=== PATIENT | male | born 1960 | race Caucasian/White ===

== ENCOUNTER 2019-10-20 08:37 | Inpatient (IN) | payer OTHER ==
--- NOTE | 2019-10-20 09:07 | BHS.RME ---
Substance Use & Tx History - Substance Use History Alcohol Substance amount: /5 th whiskey and 4 beers Frequency of use: Daily Substance route: Oral Date of Last Use: 10/20/19 Benzodiazepines Substance amount: klonopin 1mg Frequency of use: Daily Substance route: Oral Date of Last Use: 10/13/19 Physical/Psych/Mental Status - Behavior General Behavior: Increased activity (restlessness, agitation) Eye Contact: Normal - Cooperativeness Cooperativeness: Cooperative - Thinking Thought Processes: Tight, Logical, Goal Directed Thought content: Future oriented - Physical Health Problems Is patient presently having any pain?: No Does patient presently have any injuries (include location): No Does patient currently have a fever: No Is patient : No CIWA Nausea/Vomitin-Int. Nausea w/Dry Heave Muscle Tremors: 3 Anxiety: 4-Mod. Anxious/Guarded Agitation: 4-Moderately Restless Paroxysmal Sweats: 4-Forehead w/Sweat Beads Orientation: 0-Oriented Tacttile Disturbances: 1-Very Mild Itch/Numbness Auditory Disturbances: 1-Very Mild Visual Disturbances: 1-Very Mild Sensitivity Headache: 1-Very Mild CIWA-Ar Total Score: 23
--- NOTE | 2019-10-20 09:22 | BHS.RME ---
Substance Use & Tx History - Substance Use History Alcohol Substance amount: /5th whiskey + 4 beers Frequency of use: Daily Substance route: Oral Date of Last Use: 10/20/19 (8am) Benzodiazepines Substance amount: klonopin prescribed Frequency of use: Daily Substance route: Oral Date of Last Use: 10/13/19 Nicotine Substance amount: 1 pack Frequency of use: Daily Substance route: Smoking Date of Last Use: 10/20/19 Physical/Psych/Mental Status - Behavior General Behavior: Increased activity (restlessness, agitation) Eye Contact: Normal - Cooperativeness Cooperativeness: Cooperative - Thinking Thought Processes: Tight, Logical, Goal Directed - Physical Health Problems Is patient presently having any pain?: No Does patient presently have any injuries (include location): No Does patient currently have a fever: No Is patient : No CIWA Nausea/Vomitin-Int. Nausea w/Dry Heave Muscle Tremors: 3 Anxiety: 3 Agitation: 4-Moderately Restless Paroxysmal Sweats: 4-Forehead w/Sweat Beads Orientation: 0-Oriented Tacttile Disturbances: 1-Very Mild Itch/Numbness Auditory Disturbances: 1-Very Mild Visual Disturbances: 1-Very Mild Sensitivity Headache: 1-Very Mild CIWA-Ar Total Score: 22
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
[2019-10-20] MEDS ORDERED: BISMUTH SUBSALICYLATE 524 MG/30 ML UD PO PRN (09:36)
[2019-10-20] MEDS ORDERED: ONDANSETRON *ODT* 4 MG TABLET SL PRN ×2 (09:36→09:41)
[2019-10-20] MEDS ORDERED: chlordiazePOXIDE HCL 25 MG CAPSULE PO PRN (09:36)
[2019-10-20] MEDS ORDERED: MAGNESIUM CITRATE 300 ML BOTTLE PO PRN (09:36)
[2019-10-20] MEDS ORDERED: MAG HYDROX/AL HYDROX/SIMETH 30 ML UNIT-DOSE CUP PO PRN (09:36)
[2019-10-20] MEDS ORDERED: MENTHOL/PHENOL 1 EACH UD MM PRN (09:36)
[2019-10-20] MEDS ORDERED: ACETAMINOPHEN 325 MG TABLET (FP) PO PRN ×2 (09:36)
[2019-10-20] MEDS ORDERED: NICOTINE POLACRILEX 2 MG GUM BUC PRN (09:36)
[2019-10-20] MEDS ORDERED: MAGNESIUM HYDROX 2400MG/30ML ORAL SUSPENSION 30 ML CUP PO PRN (09:36)
[2019-10-20] MEDS ORDERED: IBUPROFEN 400 MG TABLET (FP) PO PRN (09:36)
[2019-10-20 09:52] VITALS: BMI 32.9
[2019-10-20] MEDS ORDERED: LISINOPRIL 10 MG TABLET (FP) ONE (09:56)
[2019-10-20] MEDS ORDERED: LISINOPRIL 10 MG TABLET (FP) PO ONE (10:00)
--- NOTE | 2019-10-20 10:07 | CONSULT ---
[facility] Psychiatric Consult - Data Date of interview: 10/20/19 Admission source: [facility] Identifying data: Mr Marcelino is a 58 years old single male, father a son in his early 30's , unemployed receiving SSI, sharing an apartment in a program seeking detox treatment for alcohol and benzodiazepine Substance Abuse History: Reports history of alcohol and klonopin use. Refer to addiction counselor's summary for further information Medical History: Significant for anemia, bronchial asthma, hypertension and drug related seizures and fracture rib 2 month ago. Patient is on mehadone 150 mg/day from. Smokes cigarettes 1-2 ppd Psychiatric History: Patient is known for two previous admisions to this facility. Reports that he was diagnosed with Schizophrenia and started on p sychotropic medications in 2009 while serving time in detention. Reports multiple previous psychiatric hospitalizations but unable to provide details. Reports he is not currently receiving oupatient psychiatric treatment. According to record, he received treatment with Zyprexa in the past. Claims that he last saw a psychiatrist 3 months ago at a clinic in [place] and he was prescribed medications. He said he does not know name of medication and tells development writer to look it up. Denies previous suicidal attempt. At present, denies experiencing psychotic symptoms, S/H ideations. However, he is very irritable, reports feeling anxious and sleeping poorly. Patient is unwilling to resume psychotropic medication Physical/Sexual Abuse/Trauma History: Denies Mental Status Exam - Mental Status Exam Alert and Oriented to: Time, Place, Person Cognitive Function: Fair Patient Appearance: Disheveled Mood: Anxious, Irritable Affect: Appropriate Patient Behavior: Cooperative (superficially) Speech Pattern: Clear Voice Loudness: Normal, Monoloudness Thought Process: Goal Oriented Thought Disorder: Not Present Hallucinations: Denies Suicidal Ideation: Denies Homicidal Ideation: Denies Insight/Judgement: Poor Sleep: Poorly Appetite: Poor Muscle strength/Tone: Normal Gait/Station: Normal Psychiatric Findings - Problem List ([place] 1, 2,3) (1) Paranoid schizophrenia Current Visit: Yes Status: Chronic (2) Substance induced mood disorder Current Visit: Yes Status: Acute (3) Substance-induced sleep disorder Current Visit: Yes Status: Acute (4) Alcohol dependence with withdrawal, uncomplicated Current Visit: Yes Status: Acute (5) Sedative, hypnotic or anxiolytic dependence, uncomplicated Current Visit: Yes Status: Acute (6) Opioid dependence on agonist therapy Current Visit: Yes Status: Chronic (7) Nicotine dependence Current Visit: Yes Status: Acute Qualifiers: Nicotine product type: cigarettes Substance use status: uncomplicated Qualified Code(s): F17.210 - Nicotine dependence, cigarettes, uncomplicated (8) Asthma Current Visit: No Status: Chronic (9) Seizure Current Visit: No Status: Chronic (10) HTN (hypertension) Current Visit: Yes Status: Chronic (11) Anemia Current Visit: Yes Status: Chronic (12) Diastasis recti Current Visit: Yes Status: Chronic - Initial Treatment Plan Initial Treatment Plan: Continue inpatient detoxification
[2019-10-20] MEDS ORDERED: METHADONE HCL 10 MG TABLET PO SCH (10:15)
[2019-10-20] MEDS ORDERED: METHADONE 120 MG, METHADONE 30 MG PO ONE (10:45)
[2019-10-20] MEDS ORDERED: METHADONE HCL 10 MG TABLET ONE (11:01)
[2019-10-20] MEDS ORDERED: METHADONE HCL 40 MG DISPERSABLE TABLET ONE (11:02)
[2019-10-20] MEDS: FERROUS SO4 325 MG TABLET (FP) PO SCH (11:12)
[2019-10-20] MEDS: hydrOXYzine PAMOATE 25 MG CAPSULE (FP) PO SCH ×4 (11:12→22:21)
[2019-10-20] MEDS: METHOCARBAMOL 500 MG TABLET PO PRN (11:12)
[2019-10-20] MEDS: chlordiazePOXIDE HCL 25 MG CAPSULE PO SCH ×3 (11:12→22:20)
[2019-10-20] MEDS: PRENATAL VITAMINS W/ FOLIC ACID TABLET (FP) PO SCH (11:12)
--- NOTE | 2019-10-20 12:48 | PN ---
[facility] Progress Note Note: Called by PAULETTE Grier 168/102 At 11:30, rec: Danny Pt refused Danny, repeat BP 167/105 at ~ 12:45 p, will write for one time Clonidine dose
[2019-10-20] MEDS ORDERED: cloNIDine HCL 0.1 MG TABLET PO ONE (13:00)
[2019-10-20] MEDS: NICOTINE 7 MG/24 HOURS TOPICAL PATCH TD SCH (13:06)
[2019-10-20 16:04] LABS: ALBUMIN 3.8 g/dl (3.4-5.0); BILIRUBIN,TOTAL 0.7 mg/dL (0.2-1); BLOOD UREA NITROGEN 8.7 mg/dL (7-18); CALCIUM 8.3 mg/dL (8.5-10.1); CREATININE 0.7 mg/dL (0.55-1.3); POTASSIUM 3.3 mmol/L (3.5-5.1); TOT PROT 7.6 g/dl (6.4-8.2)
[2019-10-20 16:13] LABS: HEMATOCRIT 38.8 % (35.4-49); HEMOGLOBIN 12.7 GM/dL (11.7-16.9); MCH 28.7 pg (25.7-33.7); MCHC 32.6 g/dl (32.0-35.9); MEAN CELL VOLUME 87.8 fl (80-96); MEAN PLT VOLUME 7.9 fl (7.5-11.1); PLATELET COUNT 230 K/MM3 (134-434); RBC 4.42 M/mm3 (4.00-5.60); RDW 20.8 % (11.9-15.9); WHITE BLOOD COUNT 7.5 K/mm3 (4.0-10.0)
[2019-10-20] MEDS: THIAMINE HCL 100 MG TABLET (FP) PO SCH (22:21)
[2019-10-20] MEDS: MELATONIN 5 MG TABLETS PO SCH (23:25)
[2019-10-21] MEDS ORDERED: METHADONE HCL 10 MG TABLET ONE (04:02)
[2019-10-21] MEDS ORDERED: METHADONE HCL 40 MG DISPERSABLE TABLET ONE (04:03)
[2019-10-21] MEDS: chlordiazePOXIDE HCL 25 MG CAPSULE PO SCH ×4 (06:09→22:00)
[2019-10-21] MEDS: METHADONE 120 MG, METHADONE 30 MG PO SCH (06:10)
[2019-10-21] MEDS: FERROUS SO4 325 MG TABLET (FP) PO SCH (07:06)
[2019-10-21] MEDS: hydrOXYzine PAMOATE 25 MG CAPSULE (FP) PO SCH ×5 (07:09→22:01)
[2019-10-21] MEDS ORDERED: ALBUTEROL SO4 HFA INHALER IH PRN (07:36)
[2019-10-21] MEDS: NICOTINE 7 MG/24 HOURS TOPICAL PATCH TD SCH (10:34)
[2019-10-21] MEDS: POTASSIUM CHLORIDE TABS 20 MEQ TABLET.ER (FP) PO SCH ×2 (10:34→22:00)
[2019-10-21] MEDS: PRENATAL VITAMINS W/ FOLIC ACID TABLET (FP) PO SCH (10:34)
--- NOTE | 2019-10-21 11:10 | PN ---
S CIWA - CIWA Score Nausea/Vomitin Muscle Tremors: 2 Anxiety: 2 Agitation: 2 Paroxysmal Sweats: No Perspiration Orientation: 0-Oriented Tacttile Disturbances: 1-Very Mild Itch/Numbness Auditory Disturbances: 0-None Visual Disturbances: 0-None Headache: 1-Very Mild CIWA-Ar Total Score: 10 BHS Progress Note (SOAP) Subjective: alert,irritable,anxious,interrupted sleep,tremor,pain in the body Vital Signs Temperature 97.6 F 10/21/19 08:52 Pulse Rate 87 10/21/19 08:52 Respiratory Rate 19 10/21/19 08:52 Blood Pressure 158/99 10/21/19 08:52 O2 Sat by Pulse Oximetry (%) 95 10/21/19 08:52 Laboratory Last Values WBC 7.5 K/mm3 (4.0-10.0) 10/20/19 09:45 RBC 4.42 M/mm3 (4.00-5.60) 10/20/19 09:45 Hgb 12.7 GM/dL (11.7-16.9) 10/20/19 09:45 Hct 38.8 % (35.4-49) 10/20/19 09:45 MCV 87.8 fl (80-96) 10/20/19 09:45 MCH 28.7 pg (25.7-33.7) 10/20/19 09:45 MCHC 32.6 g/dl (32.0-35.9) 10/20/19 09:45 RDW 20.8 % (11.9-15.9) H 10/20/19 09:45 Plt Count 230 K/MM3 (134-434) 10/20/19 09:45 MPV 7.9 fl (7.5-11.1) 10/20/19 09:45 Sodium 135 mmol/L (136-145) L 10/20/19 09:45 Potassium 3.3 mmol/L (3.5-5.1) L 10/20/19 09:45 Chloride 97 mmol/L (98-107) L 10/20/19 09:45 Carbon Dioxide 32 mmol/L (21-32) 10/20/19 09:45 Anion Gap 5 MMOL/L (8-16) L 10/20/19 09:45 BUN 8.7 mg/dL (7-18) 10/20/19 09:45 Creatinine 0.7 mg/dL (0.55-1.3) 10/20/19 09:45 Est GFR (CKD-EPI)AfAm 121.41 10/20/19 09:45 Est GFR (CKD-EPI)NonAf 104.76 10/20/19 09:45 Random Glucose 85 mg/dL (74-106) 10/20/19 09:45 Calcium 8.3 mg/dL (8.5-10.1) L 10/20/19 09:45 Total Bilirubin 0.7 mg/dL (0.2-1) 10/20/19 09:45 AST 43 U/L (15-37) H 10/20/19 09:45 ALT 48 U/L (13-61) 10/20/19 09:45 Alkaline Phosphatase 105 U/L (45-117) 10/20/19 09:45 Total Protein 7.6 g/dl (6.4-8.2) 10/20/19 09:45 Albumin 3.8 g/dl (3.4-5.0) 10/20/19 09:45 Syphilis Serology Non-reactive (NONREACTIVE) 10/20/19 09:45 HIV Ag/Ab Combo Qual Negative (NEGATIVE) 10/20/19 11:25 Objective: 10/21/19 11:07 Vital Signs Temperature 97.6 F 10/21/19 08:52 Pulse Rate 87 10/21/19 08:52 Respiratory Rate 19 10/21/19 08:52 Blood Pressure 158/99 10/21/19 08:52 O2 Sat by Pulse Oximetry (%) 95 10/21/19 08:52 10/21/19 11:07 Laboratory Last Values WBC 7.5 K/mm3 (4.0-10.0) 10/20/19 09:45 RBC 4.42 M/mm3 (4.00-5.60) 10/20/19 09:45 Hgb 12.7 GM/dL (11.7-16.9) 10/20/19 09:45 Hct 38.8 % (35.4-49) 10/20/19 09:45 MCV 87.8 fl (80-96) 10/20/19 09:45 MCH 28.7 pg (25.7-33.7) 10/20/19 09:45 MCHC 32.6 g/dl (32.0-35.9) 10/20/19 09:45 RDW 20.8 % (11.9-15.9) H 10/20/19 09:45 Plt Count 230 K/MM3 (134-434) 10/20/19 09:45 MPV 7.9 fl (7.5-11.1) 10/20/19 09:45 Sodium 135 mmol/L (136-145) L 10/20/19 09:45 Potassium 3.3 mmol/L (3.5-5.1) L 10/20/19 09:45 Chloride 97 mmol/L (98-107) L 10/20/19 09:45 Carbon Dioxide 32 mmol/L (21-32) 10/20/19 09:45 Anion Gap 5 MMOL/L (8-16) L 10/20/19 09:45 BUN 8.7 mg/dL (7-18) 10/20/19 09:45 Creatinine 0.7 mg/dL (0.55-1.3) 10/20/19 09:45 Est GFR (CKD-EPI)AfAm 121.41 10/20/19 09:45 Est GFR (CKD-EPI)NonAf 104.76 10/20/19 09:45 Random Glucose 85 mg/dL (74-106) 10/20/19 09:45 Calcium 8.3 mg/dL (8.5-10.1) L 10/20/19 09:45 Total Bilirubin 0.7 mg/dL (0.2-1) 10/20/19 09:45 AST 43 U/L (15-37) H 10/20/19 09:45 ALT 48 U/L (13-61) 10/20/19 09:45 Alkaline Phosphatase 105 U/L (45-117) 10/20/19 09:45 Total Protein 7.6 g/dl (6.4-8.2) 10/20/19 09:45 Albumin 3.8 g/dl (3.4-5.0) 10/20/19 09:45 Syphilis Serology Non-reactive (NONREACTIVE) 10/20/19 09:45 HIV Ag/Ab Combo Qual Negative (NEGATIVE) 10/20/19 11:25 hypoklalemia k 3.3 k dur 20 meq po bid for 48 hrs Assessment: 10/21/19 11:09 withdrawal symptom Plan: continue detox librium regimen,kdur 20 meq po bid for 48 hrs,methadone maintena nce 150 mgs/day
[2019-10-21] MEDS: LISINOPRIL 10 MG TABLET (FP) PO SCH (11:27)
[2019-10-21] MEDS: DOCUSATE SODIUM 100 MG CAPSULE (FP) PO SCH ×2 (17:40→22:00)
[2019-10-21] MEDS: THIAMINE HCL 100 MG TABLET (FP) PO SCH (22:00)
[2019-10-21] MEDS: MELATONIN 5 MG TABLETS PO SCH (23:21)
[2019-10-22] MEDS ORDERED: METHADONE HCL 10 MG TABLET ONE (03:57)
[2019-10-22] MEDS ORDERED: METHADONE HCL 40 MG DISPERSABLE TABLET ONE (03:58)
[2019-10-22] MEDS: chlordiazePOXIDE HCL 25 MG CAPSULE PO SCH ×4 (05:21→22:04)
[2019-10-22] MEDS: METHADONE 120 MG, METHADONE 30 MG PO SCH (05:21)
[2019-10-22] MEDS: hydrOXYzine PAMOATE 25 MG CAPSULE (FP) PO SCH ×2 (05:21→10:08)
[2019-10-22] MEDS: DOCUSATE SODIUM 100 MG CAPSULE (FP) PO SCH ×3 (05:22→22:04)
[2019-10-22] MEDS: FERROUS SO4 325 MG TABLET (FP) PO SCH ×3 (07:12→17:52)
[2019-10-22] MEDS: NICOTINE 7 MG/24 HOURS TOPICAL PATCH TD SCH (10:08)
[2019-10-22] MEDS: PRENATAL VITAMINS W/ FOLIC ACID TABLET (FP) PO SCH (10:08)
[2019-10-22] MEDS: POTASSIUM CHLORIDE TABS 20 MEQ TABLET.ER (FP) PO SCH (10:08)
[2019-10-22] MEDS: LISINOPRIL 10 MG TABLET (FP) PO SCH (10:08)
[2019-10-22 11:20] LABS: POTASSIUM 3.7 mmol/L (3.5-5.1)
[2019-10-22 11:24] LABS: BLOOD UREA NITROGEN 18.3 mg/dL (7-18); CREATININE 0.7 mg/dL (0.55-1.3)
[2019-10-22] MEDS ORDERED: hydrOXYzine PAMOATE 25 MG CAPSULE (FP) PO PRN (11:41)
--- NOTE | 2019-10-22 11:43 | PN ---
S CIWA - CIWA Score Nausea/Vomitin-No Nausea/No Vomiting Muscle Tremors: 3 Anxiety: 2 Agitation: 2 Paroxysmal Sweats: 2 Orientation: 0-Oriented Tacttile Disturbances: 0-None Auditory Disturbances: 0-None Visual Disturbances: 0-None Headache: 0-None Present CIWA-Ar Total Score: 9 BHS Progress Note (SOAP) Subjective: sweats anxiety restless body aches Objective: 10/22/19 11:42 Vital Signs Temperature 97.6 F 10/22/19 09:31 Pulse Rate 98 H 10/22/19 09:31 Respiratory Rate 18 10/22/19 09:31 Blood Pressure 148/98 10/22/19 09:31 O2 Sat by Pulse Oximetry (%) 96 10/22/19 09:31 Laboratory Tests 10/20/19 10/20/19 10/20/19 09:45 09:45 09:45 WBC 7.5 RBC 4.42 Hgb 12.7 Hct 38.8 MCV 87.8 MCH 28.7 MCHC 32.6 RDW 20.8 H Plt Count 230 MPV 7.9 Sodium 135 L Potassium 3.3 L Chloride 97 L Carbon Dioxide 32 Anion Gap 5 L BUN 8.7 Creatinine 0.7 Est GFR (CKD-EPI)AfAm 121.41 Est GFR (CKD-EPI)NonAf 104.76 Random Glucose 85 Calcium 8.3 L Total Bilirubin 0.7 AST 43 H ALT 48 Alkaline Phosphatase 105 Total Protein 7.6 Albumin 3.8 Syphilis Serology Non-reactive COVID-19 (LASHAY) HIV Ag/Ab Combo Qual 10/20/19 10/20/19 10/22/19 11:25 12:50 08:45 WBC RBC Hgb Hct MCV MCH MCHC RDW Plt Count MPV Sodium 138 Potassium 3.7 Chloride 100 Carbon Dioxide 29 Anion Gap 9 BUN 18.3 H Creatinine 0.7 Est GFR (CKD-EPI)AfAm 121.41 Est GFR (CKD-EPI)NonAf 104.76 Random Glucose 98 Calcium 9.0 Total Bilirubin AST ALT Alkaline Phosphatase Total Protein Albumin Syphilis Serology COVID-19 (LASHAY) Not detected HIV Ag/Ab Combo Qual Negative labs noted improvement on potassium level BUN slight increase noted aaox3 ambulating no acute distress Assessment: 10/22/19 11:44 withdrawals Plan: continue detox increase fluids
[2019-10-22] MEDS: THIAMINE HCL 100 MG TABLET (FP) PO SCH (22:04)
[2019-10-22] MEDS: MELATONIN 5 MG TABLETS PO SCH (23:14)
[2019-10-23] MEDS ORDERED: chlordiazePOXIDE HCL 10 MG CAPSULE PO PRN
[2019-10-23] MEDS ORDERED: METHADONE HCL 10 MG TABLET ONE (04:10)
[2019-10-23] MEDS ORDERED: METHADONE HCL 40 MG DISPERSABLE TABLET ONE (04:11)
[2019-10-23] MEDS: METHADONE 120 MG, METHADONE 30 MG PO SCH (05:14)
[2019-10-23] MEDS: DOCUSATE SODIUM 100 MG CAPSULE (FP) PO SCH ×3 (05:14→22:30)
[2019-10-23] MEDS: chlordiazePOXIDE HCL 10 MG CAPSULE PO SCH ×4 (05:15→22:30)
[2019-10-23] MEDS: FERROUS SO4 325 MG TABLET (FP) PO SCH ×3 (07:25→18:02)
[2019-10-23] MEDS: LISINOPRIL 10 MG TABLET (FP) PO SCH (10:26)
[2019-10-23] MEDS: NICOTINE 7 MG/24 HOURS TOPICAL PATCH TD SCH (10:26)
[2019-10-23] MEDS: PRENATAL VITAMINS W/ FOLIC ACID TABLET (FP) PO SCH (10:26)
--- NOTE | 2019-10-23 13:45 | PN ---
[facility] CIWA - CIWA Score Nausea/Vomitin-Mild Nausea/No Vomiting Muscle Tremors: 2 Anxiety: 2 Agitation: 1-Slight > Activity Paroxysmal Sweats: No Perspiration Orientation: 0-Oriented Tacttile Disturbances: 0-None Auditory Disturbances: 0-None Visual Disturbances: 0-None Headache: 1-Very Mild CIWA-Ar Total Score: 7 S Progress Note (SOAP) Subjective: alert,anxious,interrupted sleep,pain in the body,back,feet Objective: 10/23/19 13:44 Vital Signs Temperature 96.9 F L 10/23/19 12:55 Pulse Rate 80 10/23/19 12:55 Respiratory Rate 18 10/23/19 12:55 Blood Pressure 141/74 10/23/19 12:55 O2 Sat by Pulse Oximetry (%) 95 10/23/19 12:55 Assessment: 10/23/19 13:44 withdrawal symptom Plan: continue detox librium regimen ,mmtp 50 mgs/day maintenance
[2019-10-23] MEDS: THIAMINE HCL 100 MG TABLET (FP) PO SCH (22:30)
[2019-10-23] MEDS: MELATONIN 5 MG TABLETS PO SCH (22:30)
[2019-10-24] MEDS: METHOCARBAMOL 500 MG TABLET PO PRN (01:24)
[2019-10-24] MEDS ORDERED: METHADONE HCL 10 MG TABLET ONE (04:04)
[2019-10-24] MEDS ORDERED: METHADONE HCL 40 MG DISPERSABLE TABLET ONE (04:05)
[2019-10-24] MEDS: METHADONE 120 MG, METHADONE 30 MG PO SCH (05:08)
[2019-10-24] MEDS: DOCUSATE SODIUM 100 MG CAPSULE (FP) PO SCH ×3 (05:09→22:24)
[2019-10-24] MEDS: chlordiazePOXIDE HCL 10 MG CAPSULE PO SCH ×2 (05:09→17:21)
[2019-10-24] MEDS: FERROUS SO4 325 MG TABLET (FP) PO SCH ×3 (07:44→17:21)
[2019-10-24] MEDS: LISINOPRIL 10 MG TABLET (FP) PO SCH (10:39)
[2019-10-24] MEDS: NICOTINE 7 MG/24 HOURS TOPICAL PATCH TD SCH (10:39)
[2019-10-24] MEDS: PRENATAL VITAMINS W/ FOLIC ACID TABLET (FP) PO SCH (10:40)
[2019-10-24] MEDS: TOLNAFTATE 1% CREAM 15 GM TUBE TP SCH ×2 (13:34→22:27)
--- NOTE | 2019-10-24 16:46 | PN ---
S CIWA - CIWA Score Nausea/Vomitin-No Nausea/No Vomiting Muscle Tremors: 2 Anxiety: 3 Agitation: 3 Paroxysmal Sweats: No Perspiration Orientation: 0-Oriented Tacttile Disturbances: 0-None Auditory Disturbances: 0-None Visual Disturbances: 0-None Headache: 0-None Present CIWA-Ar Total Score: 8 BHS Progress Note (SOAP) Subjective: Anxious, Restless, Body Aches. Objective: Patient A & O X 3, Observed Ambulating on Detox Unit Unassisted. In No Acute Distress. 10/24/19 16:43 Vital Signs Temperature 97.5 F L 10/24/19 12:41 Pulse Rate 82 10/24/19 12:41 Respiratory Rate 17 10/24/19 12:41 Blood Pressure 142/73 10/24/19 12:41 O2 Sat by Pulse Oximetry (%) 97 10/24/19 12:41 Laboratory Tests 10/20/19 10/20/19 10/20/19 09:45 09:45 09:45 WBC 7.5 RBC 4.42 Hgb 12.7 Hct 38.8 MCV 87.8 MCH 28.7 MCHC 32.6 RDW 20.8 H Plt Count 230 MPV 7.9 Sodium 135 L Potassium 3.3 L Chloride 97 L Carbon Dioxide 32 Anion Gap 5 L BUN 8.7 Creatinine 0.7 Est GFR (CKD-EPI)AfAm 121.41 Est GFR (CKD-EPI)NonAf 104.76 Random Glucose 85 Calcium 8.3 L Total Bilirubin 0.7 AST 43 H ALT 48 Alkaline Phosphatase 105 Total Protein 7.6 Albumin 3.8 Syphilis Serology Non-reactive COVID-19 ([facility]ASHAY) HIV Ag/Ab Combo Qual 10/20/19 10/20/19 10/22/19 11:25 12:50 08:45 WBC RBC Hgb Hct MCV MCH MCHC RDW Plt Count MPV Sodium 138 Potassium 3.7 Chloride 100 Carbon Dioxide 29 Anion Gap 9 BUN 18.3 H Creatinine 0.7 Est GFR (CKD-EPI)AfAm 121.41 Est GFR (CKD-EPI)NonAf 104.76 Random Glucose 98 Calcium 9.0 Total Bilirubin AST ALT Alkaline Phosphatase Total Protein Albumin Syphilis Serology COVID-19 (LASHAY) Not detected HIV Ag/Ab Combo Qual Negative Lab Results noted. Assessment: 10/24/19 16:44 WITHDRAWAL SYMPTOMS. Plan: Continue Detox. Increase Daily Oral Water Intake. Patient scheduled for D/C from detox unit tomorrow pending pre-discharge medical evaluation by covering medical provider.
[2019-10-24] MEDS: THIAMINE HCL 100 MG TABLET (FP) PO SCH (22:23)
[2019-10-24] MEDS: MELATONIN 5 MG TABLETS PO SCH (22:24)
[2019-10-25] MEDS ORDERED: METHADONE HCL 40 MG DISPERSABLE TABLET ONE (04:15)
[2019-10-25] MEDS ORDERED: METHADONE HCL 10 MG TABLET ONE (04:15)
[2019-10-25] MEDS ORDERED: chlordiazePOXIDE HCL 10 MG CAPSULE PO ONE (05:00)
[2019-10-25] MEDS: DOCUSATE SODIUM 100 MG CAPSULE (FP) PO SCH (05:46)
[2019-10-25] MEDS: METHADONE 120 MG, METHADONE 30 MG PO SCH (05:46)
[2019-10-25 06:51] VITALS: PULSE 71; TEMP 97.1
[2019-10-25] MEDS: FERROUS SO4 325 MG TABLET (FP) PO SCH (07:03)
[2019-10-25] MEDS: NICOTINE 7 MG/24 HOURS TOPICAL PATCH TD SCH (10:25)
[2019-10-25] MEDS: TOLNAFTATE 1% CREAM 15 GM TUBE TP SCH (10:25)
[2019-10-25] MEDS: PRENATAL VITAMINS W/ FOLIC ACID TABLET (FP) PO SCH (10:25)
[2019-10-25] MEDS: LISINOPRIL 10 MG TABLET (FP) PO SCH (10:25)
[2019-10-25 11:01] VITALS: BP 132/81
--- NOTE | 2019-10-25 13:19 | DS ---
[facility] Detox Discharge Summary Admission Date: 10/20/19 Discharge Date: 10/25/19 - History Present History: Alcohol Dependence, Opioid Dependence, Sedative Dependence Additional Comments: Patient completed detox successfully and discharged safely in stable condition. Instructed to follow up with PCP within one week post discharge. Pertinent Past History: Asthma HTN Paranoid schizophrenia - Physical Exam Results Vital Signs: Vital Signs Temperature 97.1 F L 10/25/19 09:04 Pulse Rate 71 10/25/19 09:04 Respiratory Rate 18 10/25/19 09:04 Blood Pressure 132/81 10/25/19 09:04 O2 Sat by Pulse Oximetry (%) 98 10/25/19 05:22 Elevated b/p noted, has htn (on lisinopril), follow up with PCP for management Pertinent Admission Physical Exam Findings: Withdrawal sxs Laboratory Tests 10/20/19 10/20/19 10/20/19 09:45 09:45 09:45 WBC 7.5 RBC 4.42 Hgb 12.7 Hct 38.8 MCV 87.8 MCH 28.7 MCHC 32.6 RDW 20.8 H Plt Count 230 MPV 7.9 Sodium 135 L Potassium 3.3 L Chloride 97 L Carbon Dioxide 32 Anion Gap 5 L BUN 8.7 Creatinine 0.7 Est GFR (CKD-EPI)AfAm 121.41 Est GFR (CKD-EPI)NonAf 104.76 Random Glucose 85 Calcium 8.3 L Total Bilirubin 0.7 AST 43 H ALT 48 Alkaline Phosphatase 105 Total Protein 7.6 Albumin 3.8 Syphilis Serology Non-reactive COVID-19 ([facility]) HIV Ag/Ab Combo Qual 10/20/19 10/20/19 10/22/19 11:25 12:50 08:45 WBC RBC Hgb Hct MCV MCH MCHC RDW Plt Count MPV Sodium 138 Potassium 3.7 Chloride 100 Carbon Dioxide 29 Anion Gap 9 BUN 18.3 H Creatinine 0.7 Est GFR (CKD-EPI)AfAm 121.41 Est GFR (CKD-EPI)NonAf 104.76 Random Glucose 98 Calcium 9.0 Total Bilirubin AST ALT Alkaline Phosphatase Total Protein Albumin Syphilis Serology COVID-19 ([facility]) Not detected HIV Ag/Ab Combo Qual Negative Labs reviewed - Treatment Hospital Course: Detox Protocol Followed, Detoxed Safely, Responded well, Discharged Condition Good - Medication Discharge Medications: Ambulatory Orders Olanzapine [ZyPREXA -] 10 mg PO HS #30 tablet 03/21/15 Baclofen 10 mg PO BID PRN 10/20/19 Bupropion HCl [Wellbutrin Xl -] 150 mg PO DAILY 10/20/19 Ferrous Sulfate 325 mg PO DAILY 10/20/19 Lisinopril [Zestril] 10 mg PO DAILY 10/20/19 Methadone HCl 150 mg PO DAILY 10/20/19 clonazePAM [Klonopin -] 0.5 mg PO BID 10/20/19 Albuterol Sulfate Inhaler - [Ventolin Hfa Inhaler -] 1 - 2 inh IH PRN PRN #1 inhaler 10/24/19 Lisinopril 10 mg PO DAILY #14 tablet 10/24/19 - Diagnosis (1) Alcohol dependence with withdrawal, uncomplicated Status: Acute (2) Sedative, hypnotic or anxiolytic dependence, uncomplicated Status: Acute (3) Opioid dependence on agonist therapy Status: Acute (4) Nicotine dependence Status: Chronic Qualifiers: Nicotine product type: cigarettes Substance use status: uncomplicated Qualified Code(s): F17.210 - Nicotine dependence, cigarettes, uncomplicated (5) Asthma Status: Chronic (6) HTN (hypertension) Status: Chronic (7) Paranoid schizophrenia Status: Chronic - AMA Did Patient Leave Against Medical Advice: No (Follow up with PCP within one week)
== END 2019-10-25 11:34 | disposition home or self-care (01) | DRG 773 ==
LOC: YASAS 08:37 → Y6N 09:33
PROVIDERS: ADMIT Allergy & Immunology; ATTEND Allergy & Immunology
PROC: HZ2ZZZZ Detoxification Services for Substance Abuse Treatment (ICD-10-PCS; principal; 2019-10-20)
DX: F10.230 Alcohol dependence with withdrawal, uncomplicated (principal); F13.20 Sedative, hypnotic or anxiolytic dependence, uncomplicated; F11.20 Opioid dependence, uncomplicated; F17.210 Nicotine dependence, cigarettes, uncomplicated; F20.0 Paranoid schizophrenia; F19.282 Other psychoactive substance dependence with psychoactive substance-induced sleep disorder; F19.24 Other psychoactive substance dependence with psychoactive substance-induced mood disorder; E87.6 Hypokalemia; I10 Essential (primary) hypertension; J45.909 Unspecified asthma, uncomplicated; D64.9 Anemia, unspecified; M62.08 Separation of muscle (nontraumatic), other site; Z86.69 Personal history of other diseases of the nervous system and sense organs; Z88.8 Allergy status to other drugs, medicaments and biological substances; Z56.0 Unemployment, unspecified
CPT/HCPCS: 36415; 80048; 80053; 85027; 86780; 87389; J0735; U0003

== ENCOUNTER 2021-05-15 11:53 | Inpatient (IN) | payer OTHER ==
[2021-05-15] MEDS ORDERED: MENTHOL/PHENOL 1 EACH UD MM PRN (12:25)
[2021-05-15] MEDS ORDERED: METHOCARBAMOL 500 MG TABLET PO PRN ×2 (12:25→15:50)
[2021-05-15] MEDS ORDERED: ACETAMINOPHEN 325 MG TABLET (FP) PO PRN (12:25)
[2021-05-15] MEDS ORDERED: chlordiazePOXIDE HCL 25 MG CAPSULE PO PRN (12:25)
[2021-05-15] MEDS ORDERED: LOPERAMIDE HCL 2 MG CAPSULE PO PRN (12:25)
[2021-05-15] MEDS ORDERED: MAGNESIUM CITRATE 300 ML BOTTLE PO PRN (12:25)
[2021-05-15] MEDS ORDERED: MAGNESIUM HYDROX 2400MG/30ML ORAL SUSPENSION 30 ML CUP PO PRN (12:25)
[2021-05-15] MEDS ORDERED: BISMUTH SUBSALICYLATE 524 MG/30 ML PO PRN (12:25)
[2021-05-15] MEDS ORDERED: MAG HYDROX/AL HYDROX/SIMETH 30 ML UNIT-DOSE CUP PO PRN (12:25)
[2021-05-15] MEDS ORDERED: ONDANSETRON *ODT* 4 MG TABLET SL PRN (12:25)
[2021-05-15] MEDS ORDERED: DICYCLOMINE HCL 10 MG CAPSULE PO PRN (12:25)
[2021-05-15] MEDS ORDERED: NICOTINE 10 MG CARTRIDGE (INHALER) IH PRN (12:25)
[2021-05-15 12:42] VITALS: BMI 30.7
[2021-05-15] MEDS: PRENATAL VITAMINS W/ FOLIC ACID TABLET (FP) PO SCH (15:45)
[2021-05-15] MEDS: hydrOXYzine PAMOATE 25 MG CAPSULE (FP) PO SCH ×3 (15:45→22:11)
[2021-05-15] MEDS: NICOTINE 7 MG/24 HOURS TOPICAL PATCH TD SCH (15:45)
[2021-05-15 16:08] LABS: CALCIUM 8.7 mg/dL (8.5-10.1)
[2021-05-15 16:09] LABS: ALBUMIN 3.6 g/dl (3.4-5.0); BLOOD UREA NITROGEN 9.1 mg/dL (7-18)
[2021-05-15 16:12] LABS: CREATININE 0.7 mg/dL (0.55-1.3)
[2021-05-15 16:13] LABS: BILIRUBIN,TOTAL 0.5 mg/dL (0.2-1)
[2021-05-15 16:20] LABS: HEMATOCRIT 27.2 % (35.4-49); HEMOGLOBIN 8.7 GM/dL (11.7-16.9); MCH 25.1 pg (25.7-33.7); MCHC 31.9 g/dl (32.0-35.9); MEAN CELL VOLUME 78.5 fl (80-96); MEAN PLT VOLUME 7.9 fl (7.5-11.1); PLATELET COUNT 251 10^3/uL (134-434); RBC 3.47 M/mm3 (4.00-5.60); RDW 18.3 % (11.9-15.9); WHITE BLOOD COUNT 11.4 K/mm3 (4.0-10.0)
[2021-05-15] MEDS: chlordiazePOXIDE HCL 25 MG CAPSULE PO SCH ×2 (17:21→22:10)
[2021-05-15] MEDS: IBUPROFEN 400 MG TABLET (FP) PO PRN (17:25)
[2021-05-15] MEDS ORDERED: PATIENT'S OWN MEDICATION (NON-FORMULARY) (Clonazepam [Klonopin -] 0.5 MG Tablet) PO SCH (22:00)
[2021-05-15] MEDS: MELATONIN 5 MG TABLETS PO SCH (22:11)
[2021-05-15] MEDS: THIAMINE HCL 100 MG TABLET (FP) PO SCH (22:11)
[2021-05-15] MEDS: ACETAMINOPHEN 325 MG TABLET (FP) PO PRN (22:12)
[2021-05-15] MEDS: BACLOFEN 10 MG TABLET (FP) PO PRN (22:50)
[2021-05-16] MEDS: IBUPROFEN 400 MG TABLET (FP) PO PRN ×2 (02:39→22:17)
[2021-05-16] MEDS: hydrOXYzine PAMOATE 25 MG CAPSULE (FP) PO SCH ×6 (06:09→22:19)
[2021-05-16] MEDS: chlordiazePOXIDE HCL 25 MG CAPSULE PO SCH (06:09)
[2021-05-16] MEDS: ACETAMINOPHEN 325 MG TABLET (FP) PO PRN ×2 (06:10→17:34)
[2021-05-16] MEDS ORDERED: methaDONE HCL 10 MG TABLET PO SCH (07:45)
[2021-05-16] MEDS ORDERED: methaDONE HCL 40 MG DISPERSABLE TABLET ONE (09:21)
[2021-05-16] MEDS ORDERED: methaDONE HCL 10 MG TABLET ONE (09:21)
[2021-05-16] MEDS: FERROUS SO4 325 MG TABLET (FP) PO SCH (10:09)
[2021-05-16] MEDS: LISINOPRIL 10 MG TABLET PO SCH (10:09)
[2021-05-16] MEDS: PRENATAL VITAMINS W/ FOLIC ACID TABLET (FP) PO SCH (10:11)
[2021-05-16] MEDS: diazePAM 5 MG TABLET PO SCH ×3 (10:13→22:18)
[2021-05-16] MEDS: NICOTINE 7 MG/24 HOURS TOPICAL PATCH TD SCH (10:21)
[2021-05-16] MEDS: CYANOCOBALAMIN 1,000 MCG TABLET (FP) PO SCH (13:04)
[2021-05-16] MEDS: BACITRACIN 0.9 GM PACKET TP SCH (15:34)
[2021-05-16] MEDS ORDERED: ALBUTEROL SO4 HFA INHALER IH ONE (17:32)
[2021-05-16] MEDS: ALBUTEROL SO4 HFA INHALER IH PRN (17:32)
[2021-05-16] MEDS: THIAMINE HCL 100 MG TABLET (FP) PO SCH (22:18)
[2021-05-16] MEDS: MELATONIN 5 MG TABLETS PO SCH (22:31)
[2021-05-16] MEDS: BACLOFEN 10 MG TABLET (FP) PO PRN (22:59)
[2021-05-17] MEDS ORDERED: methaDONE HCL 10 MG TABLET ONE (04:18)
[2021-05-17] MEDS ORDERED: methaDONE HCL 40 MG DISPERSABLE TABLET ONE (04:19)
[2021-05-17] MEDS ORDERED: chlordiazePOXIDE HCL 25 MG CAPSULE PO SCH (05:00)
[2021-05-17] MEDS: diazePAM 5 MG TABLET PO SCH ×4 (05:58→22:40)
[2021-05-17] MEDS: BACLOFEN 10 MG TABLET (FP) PO PRN ×2 (05:59→22:38)
[2021-05-17] MEDS: hydrOXYzine PAMOATE 25 MG CAPSULE (FP) PO SCH ×5 (06:06→22:40)
[2021-05-17] MEDS: ACETAMINOPHEN 325 MG TABLET (FP) PO PRN ×2 (06:08→22:39)
[2021-05-17] MEDS: NICOTINE 7 MG/24 HOURS TOPICAL PATCH TD SCH (10:07)
[2021-05-17] MEDS: LISINOPRIL 10 MG TABLET PO SCH (10:08)
[2021-05-17] MEDS: PRENATAL VITAMINS W/ FOLIC ACID TABLET (FP) PO SCH (10:08)
[2021-05-17] MEDS: FERROUS SO4 325 MG TABLET (FP) PO SCH (10:08)
[2021-05-17] MEDS: CYANOCOBALAMIN 1,000 MCG TABLET (FP) PO SCH (10:10)
[2021-05-17] MEDS: BACITRACIN 0.9 GM PACKET TP SCH (11:13)
[2021-05-17 16:08] LABS: SARS-CoV-2 NAA Not Detected (Not Detected)
[2021-05-17] MEDS: IBUPROFEN 400 MG TABLET (FP) PO PRN (20:19)
[2021-05-17] MEDS: diazePAM 5 MG TABLET PO PRN (20:19)
[2021-05-17] MEDS: MELATONIN 5 MG TABLETS PO SCH (22:38)
[2021-05-17] MEDS: THIAMINE HCL 100 MG TABLET (FP) PO SCH (22:40)
[2021-05-18] MEDS ORDERED: chlordiazePOXIDE HCL 10 MG CAPSULE PO PRN
[2021-05-18] MEDS ORDERED: chlordiazePOXIDE HCL 10 MG CAPSULE PO SCH (05:00)
[2021-05-18] MEDS ORDERED: methaDONE HCL 10 MG TABLET ONE (05:11)
[2021-05-18] MEDS ORDERED: methaDONE HCL 40 MG DISPERSABLE TABLET ONE (05:12)
[2021-05-18] MEDS: diazePAM 5 MG TABLET PO SCH ×3 (05:35→22:21)
[2021-05-18] MEDS: hydrOXYzine PAMOATE 25 MG CAPSULE (FP) PO SCH ×5 (05:36→22:22)
[2021-05-18] MEDS: BACLOFEN 10 MG TABLET (FP) PO PRN ×2 (05:40→22:23)
[2021-05-18] MEDS: NICOTINE 7 MG/24 HOURS TOPICAL PATCH TD SCH (10:31)
[2021-05-18] MEDS: FERROUS SO4 325 MG TABLET (FP) PO SCH (10:32)
[2021-05-18] MEDS: CYANOCOBALAMIN 1,000 MCG TABLET (FP) PO SCH (10:32)
[2021-05-18] MEDS: BACITRACIN 0.9 GM PACKET TP SCH (10:33)
[2021-05-18] MEDS: PRENATAL VITAMINS W/ FOLIC ACID TABLET (FP) PO SCH (10:33)
[2021-05-18] MEDS: LISINOPRIL 10 MG TABLET PO SCH (10:33)
[2021-05-18] MEDS ORDERED: LIDOCAINE 5% TOPICAL PATCH TP SCH (13:00)
[2021-05-18] MEDS: ACETAMINOPHEN 325 MG TABLET (FP) PO PRN (14:44)
[2021-05-18] MEDS: diazePAM 5 MG TABLET PO PRN (17:32)
[2021-05-18] MEDS ORDERED: LIDOCAINE PATCH REMOVAL MC SCH (22:00)
[2021-05-18] MEDS: THIAMINE HCL 100 MG TABLET (FP) PO SCH (22:22)
[2021-05-18] MEDS: MELATONIN 5 MG TABLETS PO SCH (22:22)
[2021-05-18] MEDS: LIDOCAINE PATCH REMOVAL MC SCH (22:24)
[2021-05-19] MEDS: ACETAMINOPHEN 325 MG TABLET (FP) PO PRN (02:03)
[2021-05-19] MEDS: diazePAM 5 MG TABLET PO PRN (03:14)
[2021-05-19] MEDS ORDERED: methaDONE HCL 10 MG TABLET ONE (03:27)
[2021-05-19] MEDS ORDERED: methaDONE HCL 40 MG DISPERSABLE TABLET ONE (03:28)
[2021-05-19] MEDS ORDERED: chlordiazePOXIDE HCL 10 MG CAPSULE PO SCH (05:00)
[2021-05-19] MEDS: diazePAM 5 MG TABLET PO SCH ×2 (06:39→17:44)
[2021-05-19] MEDS: hydrOXYzine PAMOATE 25 MG CAPSULE (FP) PO SCH ×5 (06:40→22:51)
[2021-05-19] MEDS: PRENATAL VITAMINS W/ FOLIC ACID TABLET (FP) PO SCH (10:20)
[2021-05-19] MEDS: FERROUS SO4 325 MG TABLET (FP) PO SCH (10:20)
[2021-05-19] MEDS: LISINOPRIL 10 MG TABLET PO SCH (10:20)
[2021-05-19] MEDS: BACITRACIN 0.9 GM PACKET TP SCH (10:20)
[2021-05-19] MEDS: NICOTINE 7 MG/24 HOURS TOPICAL PATCH TD SCH (10:21)
[2021-05-19] MEDS: LIDOCAINE 5% TOPICAL PATCH TP SCH (10:21)
[2021-05-19] MEDS: CYANOCOBALAMIN 1,000 MCG TABLET (FP) PO SCH (10:22)
[2021-05-19] MEDS: IBUPROFEN 400 MG TABLET (FP) PO PRN ×3 (10:23→22:54)
[2021-05-19] MEDS: MELATONIN 5 MG TABLETS PO SCH (22:51)
[2021-05-19] MEDS: THIAMINE HCL 100 MG TABLET (FP) PO SCH (22:51)
[2021-05-19] MEDS: LIDOCAINE PATCH REMOVAL MC SCH (22:51)
[2021-05-20] MEDS ORDERED: methaDONE HCL 40 MG DISPERSABLE TABLET ONE (04:45)
[2021-05-20] MEDS ORDERED: methaDONE HCL 10 MG TABLET ONE (04:45)
[2021-05-20] MEDS ORDERED: chlordiazePOXIDE HCL 10 MG CAPSULE PO ONE (05:00)
[2021-05-20] MEDS: IBUPROFEN 400 MG TABLET (FP) PO PRN ×3 (05:56→22:46)
[2021-05-20] MEDS: hydrOXYzine PAMOATE 25 MG CAPSULE (FP) PO SCH ×5 (05:56→22:44)
[2021-05-20] MEDS ORDERED: diazePAM 5 MG TABLET PO ONE ×2 (06:00)
[2021-05-20] MEDS: PRENATAL VITAMINS W/ FOLIC ACID TABLET (FP) PO SCH (10:17)
[2021-05-20] MEDS: FERROUS SO4 325 MG TABLET (FP) PO SCH (10:17)
[2021-05-20] MEDS: CYANOCOBALAMIN 1,000 MCG TABLET (FP) PO SCH (10:17)
[2021-05-20] MEDS: BACLOFEN 10 MG TABLET (FP) PO PRN ×2 (10:19→17:43)
[2021-05-20] MEDS: LISINOPRIL 10 MG TABLET PO SCH (11:11)
[2021-05-20] MEDS: LIDOCAINE 5% TOPICAL PATCH TP SCH (11:31)
[2021-05-20] MEDS: BACITRACIN 0.9 GM PACKET TP SCH (11:32)
[2021-05-20] MEDS: NICOTINE 7 MG/24 HOURS TOPICAL PATCH TD SCH (11:42)
[2021-05-20] MEDS: MELATONIN 5 MG TABLETS PO SCH (22:44)
[2021-05-20] MEDS: THIAMINE HCL 100 MG TABLET (FP) PO SCH (22:44)
[2021-05-20] MEDS: LIDOCAINE PATCH REMOVAL MC SCH (22:45)
[2021-05-21] MEDS ORDERED: methaDONE HCL 40 MG DISPERSABLE TABLET ONE (04:59)
[2021-05-21] MEDS ORDERED: methaDONE HCL 10 MG TABLET ONE (04:59)
[2021-05-21] MEDS ORDERED: diazePAM 5 MG TABLET PO SCH (06:00)
[2021-05-21] MEDS: hydrOXYzine PAMOATE 25 MG CAPSULE (FP) PO SCH ×2 (07:04→10:22)
[2021-05-21] MEDS: ACETAMINOPHEN 325 MG TABLET (FP) PO PRN ×2 (07:04→22:41)
[2021-05-21] MEDS: PRENATAL VITAMINS W/ FOLIC ACID TABLET (FP) PO SCH (10:22)
[2021-05-21] MEDS: LIDOCAINE 5% TOPICAL PATCH TP SCH (10:22)
[2021-05-21] MEDS: FERROUS SO4 325 MG TABLET (FP) PO SCH (10:22)
[2021-05-21] MEDS: BACITRACIN 0.9 GM PACKET TP SCH (10:22)
[2021-05-21] MEDS: CYANOCOBALAMIN 1,000 MCG TABLET (FP) PO SCH (10:23)
[2021-05-21] MEDS: LISINOPRIL 10 MG TABLET PO SCH (10:23)
[2021-05-21] MEDS: NICOTINE 7 MG/24 HOURS TOPICAL PATCH TD SCH (11:06)
[2021-05-21] MEDS: IBUPROFEN 400 MG TABLET (FP) PO PRN (18:02)
[2021-05-21] MEDS: ALBUTEROL SO4 HFA INHALER IH PRN (18:02)
[2021-05-21] MEDS: BACLOFEN 10 MG TABLET (FP) PO PRN (18:34)
[2021-05-21] MEDS: MELATONIN 5 MG TABLETS PO SCH (22:40)
[2021-05-21] MEDS: THIAMINE HCL 100 MG TABLET (FP) PO SCH (22:40)
[2021-05-21] MEDS: LIDOCAINE PATCH REMOVAL MC SCH (22:41)
[2021-05-22] MEDS: IBUPROFEN 400 MG TABLET (FP) PO PRN ×2 (01:40→10:36)
[2021-05-22] MEDS ORDERED: methaDONE HCL 10 MG TABLET ONE (04:47)
[2021-05-22] MEDS ORDERED: methaDONE HCL 40 MG DISPERSABLE TABLET ONE (04:48)
[2021-05-22] MEDS: ACETAMINOPHEN 325 MG TABLET (FP) PO PRN (06:10)
[2021-05-22 08:18] LABS: URINE APPEARANCE CLEAR; URINE BILIRUBIN NEGATIVE (NEGATIVE); URINE COLOR YELLOW; URINE GLUCOSE (UA) NEGATIVE (NEGATIVE); URINE KETONE NEGATIVE (NEGATIVE); URINE LEUK ESTERASE NEGATIVE (NEGATIVE); URINE NITRITE NEGATIVE (NEGATIVE); URINE PROTEIN NEGATIVE (NEGATIVE)
[2021-05-22 08:45] VITALS: BP 126/73; PULSE 68; TEMP 97.2
[2021-05-22] MEDS: FERROUS SO4 325 MG TABLET (FP) PO SCH (10:31)
[2021-05-22] MEDS: LIDOCAINE 5% TOPICAL PATCH TP SCH (10:31)
[2021-05-22] MEDS: BACITRACIN 0.9 GM PACKET TP SCH (10:33)
[2021-05-22] MEDS: NICOTINE 7 MG/24 HOURS TOPICAL PATCH TD SCH (10:33)
[2021-05-22] MEDS: CYANOCOBALAMIN 1,000 MCG TABLET (FP) PO SCH (10:34)
[2021-05-22] MEDS: LISINOPRIL 10 MG TABLET PO SCH (10:34)
[2021-05-22] MEDS: PRENATAL VITAMINS W/ FOLIC ACID TABLET (FP) PO SCH (10:34)
[2021-05-22 12:05] LABS: HEMATOCRIT 21.6 % (35.4-49); MCH 24.8 pg (25.7-33.7); MCHC 31.5 g/dl (32.0-35.9); MEAN CELL VOLUME 78.8 fl (80-96); MEAN PLT VOLUME 8.6 fl (7.5-11.1); PLATELET COUNT 416 10^3/uL (134-434); RBC 2.75 M/mm3 (4.00-5.60); RDW 19.8 % (11.9-15.9); WHITE BLOOD COUNT 11.9 K/mm3 (4.0-10.0)
[2021-05-22 12:10] LABS: HEMOGLOBIN 6.8 GM/dL (11.7-16.9)
[2021-05-22 12:29] LABS: ANISOCYTOSIS 0; HELMET CELLS 0; HOWELL-JOLLY BODIES 0; MACROCYTOSIS 0; OVALOCYTE 0; ROULEAU 0; SICKELED CELLS 0; TARGET CELLS 0; TEAR DROP CELLS 0; TOXIC GRANULATION 0
== END 2021-05-22 13:09 | disposition home or self-care (01) | DRG 773 ==
LOC: YASAS 11:53 → Y3N 13:27
PROVIDERS: ADMIT Allergy & Immunology; ATTEND Allergy & Immunology
PROC: HZ2ZZZZ Detoxification Services for Substance Abuse Treatment (ICD-10-PCS; principal; 2021-05-15)
DX: F10.230 Alcohol dependence with withdrawal, uncomplicated (principal); F11.20 Opioid dependence, uncomplicated; F13.20 Sedative, hypnotic or anxiolytic dependence, uncomplicated; F17.210 Nicotine dependence, cigarettes, uncomplicated; F20.0 Paranoid schizophrenia; F19.282 Other psychoactive substance dependence with psychoactive substance-induced sleep disorder; F19.24 Other psychoactive substance dependence with psychoactive substance-induced mood disorder; D72.819 Decreased white blood cell count, unspecified; D64.9 Anemia, unspecified; G62.9 Polyneuropathy, unspecified; I10 Essential (primary) hypertension; J45.909 Unspecified asthma, uncomplicated; R07.9 Chest pain, unspecified; Z28.310 Unvaccinated for COVID-19; Z86.69 Personal history of other diseases of the nervous system and sense organs; Z88.8 Allergy status to other drugs, medicaments and biological substances; Z87.39 Personal history of other diseases of the musculoskeletal system and connective tissue
CPT/HCPCS: 36415; 71101-TC-LT-FY; 80053; 81003; 85025; 85027; 86780; 87811; 93005; 93010; C9803-CS; J0475; U0003; U0005

== ENCOUNTER 2021-05-22 13:27 | Inpatient (IN) | payer OTHER ==
[2021-05-22] MEDS ORDERED: VANCOMYCIN/WATER 1,250 MG/250 ML BAG IVPB ONE (15:33)
[2021-05-22] MEDS ORDERED: CEFEPIME HCL/D5W 2 GM/50 ML BAG IVPB ONE (15:37)
[2021-05-22] MEDS ORDERED: CEFEPIME 2 GM/100 ML BAG IVPB ONE (15:50)
[2021-05-22 16:24] LABS: BASO % 0.3 % (0-2.0); EOS % 0.4 % (0-4.5); HEMATOCRIT 22.3 % (35.4-49); HEMOGLOBIN 7.1 GM/dL (11.7-16.9); LYMPH % 5.8 % (8-40); MCH 24.5 pg (25.7-33.7); MCHC 31.6 g/dl (32.0-35.9); MEAN CELL VOLUME 77.5 fl (80-96); MEAN PLT VOLUME 8.1 fl (7.5-11.1); MONO % 8.9 % (3.8-10.2); NEUT % 84.6 % (42.8-82.8); PLATELET COUNT 406 10^3/uL (134-434); RBC 2.88 M/mm3 (4.00-5.60); RDW 19.8 % (11.9-15.9); WHITE BLOOD COUNT 12.3 K/mm3 (4.0-10.0)
[2021-05-22] MEDS ORDERED: VANCOMYCIN/WATER BAGS 1,250 MG/250 ML BAG IVPB ONE (16:25)
[2021-05-22 16:33] LABS: CALCIUM 8.6 mg/dL (8.5-10.1)
[2021-05-22 16:34] LABS: BLOOD UREA NITROGEN 18.3 mg/dL (7-18)
[2021-05-22 16:37] LABS: CREATININE 0.6 mg/dL (0.55-1.3)
[2021-05-22 16:38] LABS: TOT PROT 6.6 g/dl (6.4-8.2)
[2021-05-22 16:39] LABS: BILIRUBIN,TOTAL 0.2 mg/dL (0.2-1)
[2021-05-22 16:52] LABS: ALBUMIN 2.2 g/dl (3.4-5.0)
[2021-05-22 16:59] LABS: ANISOCYTOSIS 3+; MACROCYTOSIS 0; OVALOCYTE 1+; TARGET CELLS 1+
[2021-05-22] MEDS ORDERED: TETANUS AND DIPHTHERIA TOXOID 0.5 ML DISP.SYRIN IM ONE (21:47)
[2021-05-22] MEDS ORDERED: VANCOMYCIN 1 GM in D5W (PRE-DOCKED) 1,000 MG/250 ML IVPB SCH (22:00)
[2021-05-22] MEDS ORDERED: CEFEPIME 1 GM in DEXTROSE 5%-WATER 100 ML IVPB SCH (22:00)
[2021-05-22] MEDS: LACTATED RINGERS SOLUTION 1,000 ML IV SCH (22:11)
[2021-05-22] MEDS ORDERED: DIPHTH,PERTUSS(ACELL),TET 0.5 ML DISP.SYRIN IM ONE (22:33)
[2021-05-23 02:52] VITALS: BMI 31.6
[2021-05-23] MEDS ORDERED: DEXTROSE 5%-WATER 100 ML IVPB ONE ×2 (05:54→17:35)
[2021-05-23] MEDS ORDERED: CEFEPIME HCL 1 GM VIAL (RESTRICTED TO ID) ONE ×2 (05:54→17:35)
[2021-05-23] MEDS ORDERED: VANCOMYCIN 1 GM in D5W (PRE-DOCKED) 1,000 MG/250 ML IVPB SCH (06:00)
[2021-05-23] MEDS ORDERED: CEFEPIME 1 GM in DEXTROSE 5%-WATER 100 ML IVPB SCH (06:00)
[2021-05-23 08:26] LABS: CALCIUM 8.1 mg/dL (8.5-10.1)
[2021-05-23 08:27] LABS: BLOOD UREA NITROGEN 11.6 mg/dL (7-18); MAGNESIUM 2.6 mg/dL (1.8-2.4)
[2021-05-23 08:30] LABS: CREATININE 0.6 mg/dL (0.55-1.3); PHOSPHOROUS 4.4 mg/dL (2.5-4.9)
[2021-05-23] MEDS ORDERED: VANCOMYCIN 1 GM/200 ML PREMIX BAG IVPB SCH (08:30)
[2021-05-23 08:31] LABS: TOT PROT 6.1 g/dl (6.4-8.2)
[2021-05-23 08:32] LABS: BILIRUBIN,TOTAL 0.5 mg/dL (0.2-1)
[2021-05-23 09:16] LABS: HEMATOCRIT 21.4 % (35.4-49); MCHC 31.2 g/dl (32.0-35.9); MEAN PLT VOLUME 8.2 fl (7.5-11.1); PLATELET COUNT 513 10^3/uL (134-434); RBC 2.77 M/mm3 (4.00-5.60); RDW 19.8 % (11.9-15.9); WHITE BLOOD COUNT 16.5 K/mm3 (4.0-10.0)
[2021-05-23 09:23] LABS: HEMOGLOBIN 6.7 GM/dL (11.7-16.9)
[2021-05-23] MEDS ORDERED: PANTOPRAZOLE SODIUM 40 MG in SODIUM CHLORIDE 100 ML IVPB SCH (10:00)
[2021-05-23 10:36] LABS: ANISOCYTOSIS 1+
[2021-05-23 10:38] LABS: PLATELET ESTIMATE INCREASED
[2021-05-23] MEDS: ENOXAPARIN NA (PORCINE) 40 MG/0.4 ML DISP.SYRIN SQ SCH (11:28)
[2021-05-23] MEDS: PANTOPRAZOLE SODIUM 40 MG VIAL IVPB SCH ×2 (11:30→11:42)
[2021-05-23] MEDS ORDERED: IRON SUCROSE INJECTION 100 MG in SODIUM CHLORIDE 95 ML IVPB ONE (12:29)
[2021-05-23] MEDS ORDERED: methaDONE HCL 10 MG TABLET PO SCH (12:30)
[2021-05-23] MEDS ORDERED: ACETAMINOPHEN 1000 MG/100 ML BAG IVPB ONE ×2 (12:33→14:45)
[2021-05-23] MEDS ORDERED: methaDONE HCL 40 MG DISPERSABLE TABLET ONE (12:58)
[2021-05-23] MEDS ORDERED: methaDONE HCL 10 MG TABLET ONE (12:58)
[2021-05-23 16:04] LABS: COCAINE, UR NEGATIVE (NEGATIVE); OPIATES, URI NEGATIVE (NEGATIVE); PHENCYCLIDINE,URINE NEGATIVE (NEGATIVE)
[2021-05-23 16:15] LABS: METHADONE, UR POSITIVE (NEGATIVE); URINE AMPHETAMINES NEGATIVE (NEGATIVE); URINE BARBITURATES NEGATIVE (NEGATIVE); URINE BENZODIAZEPINES POSITIVE (NEGATIVE)
[2021-05-23] MEDS: CEFEPIME 1 GM in DEXTROSE 5%-WATER 100 ML IVPB SCH ×2 (16:21→18:51)
[2021-05-23] MEDS: VANCOMYCIN 1 GM in D5W (PRE-DOCKED) 1,000 MG/250 ML IVPB SCH (16:21)
[2021-05-23] MEDS: VANCOMYCIN/WATER BAGS 1,250 MG/250 ML BAG IVPB SCH (23:17)
[2021-05-23] MEDS: POLYETHYLENE GLYCOL (HEALTHYLAX) 3350 17 GM PACKET PO SCH (23:23)
[2021-05-24] MEDS: LACTATED RINGERS SOLUTION 1,000 ML IV SCH (02:23)
[2021-05-24] MEDS ORDERED: CEFEPIME HCL 1 GM VIAL (RESTRICTED TO ID) ONE ×3 (02:36→17:10)
[2021-05-24] MEDS ORDERED: DEXTROSE 5%-WATER 100 ML IVPB ONE ×3 (02:37→17:10)
[2021-05-24] MEDS: CEFEPIME 1 GM in DEXTROSE 5%-WATER 100 ML IVPB SCH ×3 (03:39→17:11)
[2021-05-24] MEDS ORDERED: methaDONE HCL 40 MG DISPERSABLE TABLET ONE (06:15)
[2021-05-24] MEDS ORDERED: methaDONE HCL 10 MG TABLET ONE (06:15)
[2021-05-24 08:30] LABS: INR 1.28 (0.83-1.09); PROTHROMBIN TIME (PATIENT) 14.8 SEC (9.7-13.0)
[2021-05-24 08:32] LABS: ACTIVATED PTT 30.7 SECONDS (25.2-36.5)
[2021-05-24 08:37] LABS: HEMATOCRIT 20.8 % (35.4-49); MCH 24.6 pg (25.7-33.7); MCHC 32.1 g/dl (32.0-35.9); MEAN CELL VOLUME 76.9 fl (80-96); MEAN PLT VOLUME 7.7 fl (7.5-11.1); PLATELET COUNT 499 10^3/uL (134-434); RBC 2.71 M/mm3 (4.00-5.60); RDW 20.3 % (11.9-15.9); WHITE BLOOD COUNT 12.8 K/mm3 (4.0-10.0)
[2021-05-24 08:54] LABS: CALCIUM 7.9 mg/dL (8.5-10.1)
[2021-05-24 08:55] LABS: BILIRUBIN,TOTAL 0.4 mg/dL (0.2-1); HEMOGLOBIN 6.7 GM/dL (11.7-16.9)
[2021-05-24 08:56] LABS: BILIRUBIN,DIRECT 0.2 mg/dL (0.0-0.2); CREATININE 0.6 mg/dL (0.55-1.3); TOT PROT 6.2 g/dl (6.4-8.2)
[2021-05-24] MEDS ORDERED: IRON SUCROSE INJECTION 200 MG in SODIUM CHLORIDE 90 ML IVPB ONE (10:00)
[2021-05-24] MEDS: POLYETHYLENE GLYCOL (HEALTHYLAX) 3350 17 GM PACKET PO SCH ×2 (10:50→21:48)
[2021-05-24] MEDS: ENOXAPARIN NA (PORCINE) 40 MG/0.4 ML DISP.SYRIN SQ SCH (10:51)
[2021-05-24] MEDS: PANTOPRAZOLE SODIUM 40 MG VIAL IVPB SCH (10:51)
[2021-05-24 12:20] LABS: ANISOCYTOSIS 1+; MACROCYTOSIS 0; PLATELET ESTIMATE INCREASED
[2021-05-24] MEDS: VANCOMYCIN/WATER BAGS 1,250 MG/250 ML BAG IVPB SCH ×2 (12:26→22:50)
[2021-05-24] MEDS ORDERED: ALPRAZolam 1 MG TABLET PO PRN (21:15)
[2021-05-25] MEDS: POLYETHYLENE GLYCOL (HEALTHYLAX) 3350 17 GM PACKET PO SCH ×3 (01:30→22:07)
[2021-05-25] MEDS ORDERED: CEFEPIME HCL 1 GM VIAL (RESTRICTED TO ID) ONE ×3 (02:55→17:55)
[2021-05-25] MEDS ORDERED: DEXTROSE 5%-WATER 100 ML IVPB ONE ×3 (02:55→17:56)
[2021-05-25] MEDS: LACTATED RINGERS SOLUTION 1,000 ML IV SCH ×2 (04:50→13:45)
[2021-05-25] MEDS: CEFEPIME 1 GM in DEXTROSE 5%-WATER 100 ML IVPB SCH ×5 (04:52→18:20)
[2021-05-25] MEDS ORDERED: methaDONE HCL 10 MG TABLET ONE (05:28)
[2021-05-25] MEDS ORDERED: methaDONE HCL 40 MG DISPERSABLE TABLET ONE (05:29)
[2021-05-25 08:27] LABS: HEMATOCRIT 25.5 % (35.4-49); MCH 24.7 pg (25.7-33.7); MCHC 31.4 g/dl (32.0-35.9); MEAN CELL VOLUME 78.6 fl (80-96); MEAN PLT VOLUME 7.5 fl (7.5-11.1); PLATELET COUNT 556 10^3/uL (134-434); RBC 3.24 M/mm3 (4.00-5.60); RDW 20.1 % (11.9-15.9); WHITE BLOOD COUNT 12.9 K/mm3 (4.0-10.0)
[2021-05-25 08:44] LABS: INR 1.28 (0.83-1.09); PROTHROMBIN TIME (PATIENT) 14.8 SEC (9.7-13.0)
[2021-05-25 09:04] LABS: CALCIUM 8.3 mg/dL (8.5-10.1)
[2021-05-25 09:05] LABS: ALBUMIN 2.2 g/dl (3.4-5.0); BLOOD UREA NITROGEN 11.6 mg/dL (7-18); MAGNESIUM 2.7 mg/dL (1.8-2.4)
[2021-05-25 09:08] LABS: BILIRUBIN,DIRECT 0.2 mg/dL (0.0-0.2); CREATININE 0.6 mg/dL (0.55-1.3)
[2021-05-25 09:09] LABS: BILIRUBIN,TOTAL 0.4 mg/dL (0.2-1); TOT PROT 6.7 g/dl (6.4-8.2)
[2021-05-25] MEDS: ENOXAPARIN NA (PORCINE) 40 MG/0.4 ML DISP.SYRIN SQ SCH (11:04)
[2021-05-25] MEDS: PANTOPRAZOLE SODIUM 40 MG VIAL IVPB SCH (11:14)
[2021-05-25] MEDS ORDERED: BUPIVACAINE HCL/PF 0.5% (5MG/ML) 10 ML VIAL ONE (11:22)
[2021-05-25] MEDS ORDERED: LIDOCAINE HCL 1%, 10 MG/ML (20ML VIAL) ONE (11:22)
[2021-05-25] MEDS ORDERED: PROPOFOL 20 ML ONE (11:26)
[2021-05-25] MEDS ORDERED: SUCCINYLCHOLINE CHLORIDE 200 MG/10 ML SYRINGE ONE (11:26)
[2021-05-25] MEDS ORDERED: MIDAZOLAM HCL 2 MG/2 ML SINGLE DOSE VIAL ONE (11:29)
[2021-05-25] MEDS ORDERED: KETAMINE HCL 200 MG/20 ML VIAL ONE (12:38)
[2021-05-25] MEDS ORDERED: HYDROmorphone HCl 2 MG/ML VIAL ONE (12:38)
[2021-05-25] MEDS ORDERED: DEXAMETHASONE SOD PHOSPHATE 4 MG/1 ML VIAL ONE (12:38)
[2021-05-25 12:53] LABS: ANISOCYTOSIS 1+; MACROCYTOSIS 0
[2021-05-25] MEDS ORDERED: ONDANSETRON 4 MG/2 ML VIAL IVPUSH PRN ×2 (13:30→13:36)
[2021-05-25] MEDS: VANCOMYCIN/WATER BAGS 1,250 MG/250 ML BAG IVPB SCH ×2 (13:47→23:10)
[2021-05-25] MEDS ORDERED: ACETAMINOPHEN 500 MG TABLET (FP) PO ONE (20:06)
[2021-05-26] MEDS ORDERED: DEXTROSE 5%-WATER 100 ML IVPB ONE ×2 (00:17→08:49)
[2021-05-26] MEDS ORDERED: CEFEPIME HCL 1 GM VIAL (RESTRICTED TO ID) ONE ×2 (00:17→08:49)
[2021-05-26] MEDS: CEFEPIME 1 GM in DEXTROSE 5%-WATER 100 ML IVPB SCH ×3 (01:32→18:53)
[2021-05-26] MEDS ORDERED: KETOROLAC TROMETHAMINE 15 MG/ML VIAL IVPB ONE (01:52)
[2021-05-26] MEDS ORDERED: methaDONE HCL 40 MG DISPERSABLE TABLET ONE (05:39)
[2021-05-26] MEDS ORDERED: methaDONE HCL 10 MG TABLET ONE (05:39)
[2021-05-26 09:06] LABS: HEMATOCRIT 23.2 % (35.4-49); HEMOGLOBIN 7.5 GM/dL (11.7-16.9); MCH 25.4 pg (25.7-33.7); MCHC 32.2 g/dl (32.0-35.9); MEAN CELL VOLUME 78.9 fl (80-96); MEAN PLT VOLUME 7.4 fl (7.5-11.1); PLATELET COUNT 564 10^3/uL (134-434); RBC 2.94 M/mm3 (4.00-5.60); WHITE BLOOD COUNT 11.8 K/mm3 (4.0-10.0)
[2021-05-26] MEDS: POLYETHYLENE GLYCOL (HEALTHYLAX) 3350 17 GM PACKET PO SCH ×3 (09:16→22:40)
[2021-05-26] MEDS: ENOXAPARIN NA (PORCINE) 40 MG/0.4 ML DISP.SYRIN SQ SCH (09:16)
[2021-05-26 09:48] LABS: CREATININE 0.6 mg/dL (0.55-1.3)
[2021-05-26 09:49] LABS: BILIRUBIN,TOTAL 0.2 mg/dL (0.2-1)
[2021-05-26 09:50] LABS: TOT PROT 6.5 g/dl (6.4-8.2)
[2021-05-26 09:51] LABS: ALBUMIN 2.4 g/dl (3.4-5.0); BLOOD UREA NITROGEN 19.6 mg/dL (7-18)
[2021-05-26] MEDS ORDERED: PANTOPRAZOLE SODIUM 40 MG VIAL IVPB SCH (10:00)
[2021-05-26] MEDS: VANCOMYCIN/WATER BAGS 1,250 MG/250 ML BAG IVPB SCH ×2 (11:30→22:50)
[2021-05-26 11:56] LABS: ANISOCYTOSIS 1+; MACROCYTOSIS 0
[2021-05-26] MEDS ORDERED: traMADol HCL 50 MG TABLET PO PRN (12:40)
[2021-05-26] MEDS ORDERED: ALBUTEROL SO4 2.5/IPRATROPIUM 0.5 INH SOL 3 ML VIAL.NEB. NEB PRN (12:58)
[2021-05-26] MEDS: PANTOPRAZOLE 40 MG TABLET PO SCH (13:34)
[2021-05-26] MEDS: LISINOPRIL 10 MG TABLET PO SCH (13:34)
[2021-05-26] MEDS: DOCUSATE SODIUM 100 MG CAPSULE (FP) PO SCH ×2 (13:34→22:20)
[2021-05-26] MEDS ORDERED: IRON SUCROSE INJECTION 100 MG in SODIUM CHLORIDE 95 ML IVPB ONE (14:00)
[2021-05-26] MEDS: NICOTINE 21 MG/24 HOURS TOPICAL PATCH TD SCH (17:55)
[2021-05-26] MEDS: traMADol HCL 50 MG TABLET PO PRN ×2 (19:01→22:37)
[2021-05-26 22:06] LABS: GLIADIN ANTIBODY IGA 6 units (0-19); GLIADIN ANTIBODY IGG 61 units (0-19); TRANSGLUTAMINASE IGG < 2 U/mL (0-5)
[2021-05-27] MEDS ORDERED: DEXTROSE 5%-WATER 100 ML IVPB ONE ×3 (01:33→17:17)
[2021-05-27] MEDS ORDERED: CEFEPIME HCL 1 GM VIAL (RESTRICTED TO ID) ONE ×3 (01:33→17:15)
[2021-05-27] MEDS: CEFEPIME 1 GM in DEXTROSE 5%-WATER 100 ML IVPB SCH ×3 (01:47→17:35)
[2021-05-27] MEDS: LACTATED RINGERS SOLUTION 1,000 ML IV SCH ×2 (03:50→13:59)
[2021-05-27] MEDS ORDERED: methaDONE HCL 10 MG TABLET ONE (05:28)
[2021-05-27] MEDS ORDERED: methaDONE HCL 40 MG DISPERSABLE TABLET ONE (05:29)
[2021-05-27] MEDS: DOCUSATE SODIUM 100 MG CAPSULE (FP) PO SCH ×3 (05:45→21:04)
[2021-05-27 08:42] LABS: HEMATOCRIT 26.9 % (35.4-49); HEMOGLOBIN 9.1 GM/dL (11.7-16.9); MCH 33.7 pg (25.7-33.7); MEAN PLT VOLUME 8.5 fl (7.5-11.1); PLATELET COUNT 248 10^3/uL (134-434); RBC 2.71 M/mm3 (4.00-5.60); RDW 16.6 % (11.9-15.9); WHITE BLOOD COUNT 4.9 K/mm3 (4.0-10.0)
[2021-05-27 08:59] LABS: CALCIUM 9.1 mg/dL (8.5-10.1)
[2021-05-27 09:02] LABS: CREATININE 4.3 mg/dL (0.55-1.3)
[2021-05-27 09:03] LABS: BILIRUBIN,TOTAL 0.4 mg/dL (0.2-1); TOT PROT 6.6 g/dl (6.4-8.2)
[2021-05-27 09:09] LABS: ALBUMIN 2.9 g/dl (3.4-5.0); BLOOD UREA NITROGEN 52.8 mg/dL (7-18)
[2021-05-27] MEDS: traMADol HCL 50 MG TABLET PO PRN ×2 (10:12→22:25)
[2021-05-27] MEDS: VANCOMYCIN/WATER BAGS 1,250 MG/250 ML BAG IVPB SCH ×2 (10:14→20:50)
[2021-05-27] MEDS: LISINOPRIL 10 MG TABLET PO SCH (10:15)
[2021-05-27] MEDS: POLYETHYLENE GLYCOL (HEALTHYLAX) 3350 17 GM PACKET PO SCH ×2 (10:15→21:04)
[2021-05-27] MEDS: ENOXAPARIN NA (PORCINE) 40 MG/0.4 ML DISP.SYRIN SQ SCH (10:15)
[2021-05-27] MEDS: PANTOPRAZOLE 40 MG TABLET PO SCH (10:15)
[2021-05-27] MEDS: NICOTINE 21 MG/24 HOURS TOPICAL PATCH TD SCH (10:16)
[2021-05-27 11:02] LABS: ANISOCYTOSIS 0; HELMET CELLS 0; HOWELL-JOLLY BODIES 0; MACROCYTOSIS 0; OVALOCYTE 0; ROULEAU 0; SICKELED CELLS 0; TARGET CELLS 0; TEAR DROP CELLS 0; TOXIC GRANULATION 0
[2021-05-27] MEDS ORDERED: POTASSIUM CHLORIDE TABS 20 MEQ TABLET.ER (FP) PO ONE (11:45)
[2021-05-27 13:47] LABS: CALCIUM 7.9 mg/dL (8.5-10.1)
[2021-05-27 13:51] LABS: CREATININE 0.6 mg/dL (0.55-1.3)
[2021-05-27 13:52] LABS: BILIRUBIN,TOTAL 0.2 mg/dL (0.2-1)
[2021-05-27 13:53] LABS: TOT PROT 5.8 g/dl (6.4-8.2)
[2021-05-27 13:59] LABS: ALBUMIN 2.2 g/dl (3.4-5.0); BLOOD UREA NITROGEN 12.9 mg/dL (7-18)
[2021-05-28] MEDS ORDERED: CEFEPIME HCL 1 GM VIAL (RESTRICTED TO ID) ONE ×2 (01:25→08:42)
[2021-05-28] MEDS ORDERED: DEXTROSE 5%-WATER 100 ML IVPB ONE ×2 (01:25→08:42)
[2021-05-28] MEDS: CEFEPIME 1 GM in DEXTROSE 5%-WATER 100 ML IVPB SCH ×2 (01:48→09:00)
[2021-05-28] MEDS ORDERED: methaDONE HCL 10 MG TABLET ONE (05:17)
[2021-05-28] MEDS ORDERED: methaDONE HCL 40 MG DISPERSABLE TABLET ONE (05:18)
[2021-05-28] MEDS: DOCUSATE SODIUM 100 MG CAPSULE (FP) PO SCH ×3 (05:26→21:31)
[2021-05-28] MEDS: VANCOMYCIN/WATER BAGS 1,250 MG/250 ML BAG IVPB SCH ×2 (06:23→17:44)
[2021-05-28 08:57] LABS: ALBUMIN 2.1 g/dl (3.4-5.0); BILIRUBIN,TOTAL 0.2 mg/dL (0.2-1); BLOOD UREA NITROGEN 11.1 mg/dL (7-18); CALCIUM 8.1 mg/dL (8.5-10.1); CREATININE 0.6 mg/dL (0.55-1.3)
[2021-05-28] MEDS: PANTOPRAZOLE 40 MG TABLET PO SCH (09:00)
[2021-05-28] MEDS: POLYETHYLENE GLYCOL (HEALTHYLAX) 3350 17 GM PACKET PO SCH ×2 (09:00→21:31)
[2021-05-28] MEDS: ENOXAPARIN NA (PORCINE) 40 MG/0.4 ML DISP.SYRIN SQ SCH (09:00)
[2021-05-28] MEDS: LISINOPRIL 10 MG TABLET PO SCH (09:00)
[2021-05-28] MEDS: NICOTINE 21 MG/24 HOURS TOPICAL PATCH TD SCH (09:01)
[2021-05-28] MEDS: traMADol HCL 50 MG TABLET PO PRN (09:06)
[2021-05-28 12:16] LABS: HEMATOCRIT 24.1 % (35.4-49); HEMOGLOBIN 7.8 GM/dL (11.7-16.9); MCH 25.7 pg (25.7-33.7); MCHC 32.2 g/dl (32.0-35.9); MEAN CELL VOLUME 79.9 fl (80-96); PLATELET COUNT 544 10^3/uL (134-434); RBC 3.01 M/mm3 (4.00-5.60); RDW 21.5 % (11.9-15.9); WHITE BLOOD COUNT 6.1 K/mm3 (4.0-10.0)
[2021-05-28 13:25] LABS: ANISOCYTOSIS 1+; MACROCYTOSIS 0
[2021-05-28] MEDS: COLLAGENASE CLOSTRIDIUM HIST. 30 GRAMS TUBE TP SCH (13:48)
[2021-05-28] MEDS: LACTATED RINGERS SOLUTION 1,000 ML IV SCH (17:44)
[2021-05-29] MEDS ORDERED: methaDONE HCL 10 MG TABLET ONE (05:47)
[2021-05-29] MEDS ORDERED: methaDONE HCL 40 MG DISPERSABLE TABLET ONE (05:47)
[2021-05-29] MEDS: DOCUSATE SODIUM 100 MG CAPSULE (FP) PO SCH ×3 (06:15→21:45)
[2021-05-29] MEDS: VANCOMYCIN/WATER BAGS 1,250 MG/250 ML BAG IVPB SCH ×2 (06:16→21:34)
[2021-05-29] MEDS ORDERED: PEG 3350/NA SULF BICARB CL/KCL 4000 ML SOLN.RECON PO ONE (09:00)
[2021-05-29] MEDS: LACTATED RINGERS SOLUTION 1,000 ML IV SCH ×3 (09:31→23:32)
[2021-05-29] MEDS: ENOXAPARIN NA (PORCINE) 40 MG/0.4 ML DISP.SYRIN SQ SCH (09:31)
[2021-05-29] MEDS: NICOTINE 21 MG/24 HOURS TOPICAL PATCH TD SCH (09:32)
[2021-05-29] MEDS: PANTOPRAZOLE 40 MG TABLET PO SCH (09:32)
[2021-05-29] MEDS: POLYETHYLENE GLYCOL (HEALTHYLAX) 3350 17 GM PACKET PO SCH ×2 (09:32→21:45)
[2021-05-29] MEDS: traMADol HCL 50 MG TABLET PO PRN (09:33)
[2021-05-29] MEDS: LISINOPRIL 10 MG TABLET PO SCH (09:34)
[2021-05-29] MEDS: COLLAGENASE CLOSTRIDIUM HIST. 30 GRAMS TUBE TP SCH (09:38)
[2021-05-29 09:46] LABS: INR 1.32 (0.83-1.09); PROTHROMBIN TIME (PATIENT) 15.2 SEC (9.7-13.0)
[2021-05-29 10:12] LABS: ALBUMIN 2.6 g/dl (3.4-5.0); BILIRUBIN,TOTAL 0.6 mg/dL (0.2-1); CALCIUM 8.9 mg/dL (8.5-10.1); CREATININE 0.7 mg/dL (0.55-1.3); TOT PROT 6.7 g/dl (6.4-8.2)
[2021-05-29] MEDS ORDERED: BISACODYL 5 MG TABLET.DR (FP) PO ONE (18:00)
[2021-05-30] MEDS ORDERED: methaDONE HCL 40 MG DISPERSABLE TABLET ONE (05:57)
[2021-05-30] MEDS ORDERED: methaDONE HCL 10 MG TABLET ONE (05:57)
[2021-05-30] MEDS: DOCUSATE SODIUM 100 MG CAPSULE (FP) PO SCH ×3 (06:37→22:28)
[2021-05-30] MEDS: VANCOMYCIN/WATER BAGS 1,250 MG/250 ML BAG IVPB SCH ×2 (06:37→13:13)
[2021-05-30 08:56] LABS: EOS % 1.2 % (0-4.5); HEMATOCRIT 25.9 % (35.4-49); HEMOGLOBIN 8.4 GM/dL (11.7-16.9); MCH 25.6 pg (25.7-33.7); MCHC 32.4 g/dl (32.0-35.9); MEAN CELL VOLUME 79.1 fl (80-96); MEAN PLT VOLUME 6.5 fl (7.5-11.1); MONO % 6.9 % (3.8-10.2); NEUT % 65.9 % (42.8-82.8); PLATELET COUNT 548 10^3/uL (134-434); RBC 3.27 M/mm3 (4.00-5.60); RDW 21.5 % (11.9-15.9); WHITE BLOOD COUNT 4.5 K/mm3 (4.0-10.0)
[2021-05-30 09:01] LABS: INR 1.35 (0.83-1.09); PROTHROMBIN TIME (PATIENT) 15.6 SEC (9.7-13.0)
[2021-05-30 09:21] LABS: BLOOD UREA NITROGEN 7.8 mg/dL (7-18); CALCIUM 8.7 mg/dL (8.5-10.1); MAGNESIUM 2.1 mg/dL (1.8-2.4)
[2021-05-30 09:22] LABS: ALBUMIN 2.1 g/dl (3.4-5.0)
[2021-05-30 09:25] LABS: CREATININE 0.5 mg/dL (0.55-1.3)
[2021-05-30 09:26] LABS: BILIRUBIN,TOTAL 0.3 mg/dL (0.2-1)
[2021-05-30 09:43] LABS: ANISOCYTOSIS 1+
[2021-05-30 10:58] LABS: HIV INTERPRETATION NEGATIVE (NEGATIVE)
[2021-05-30] MEDS: POLYETHYLENE GLYCOL (HEALTHYLAX) 3350 17 GM PACKET PO SCH ×3 (13:11→22:28)
[2021-05-30] MEDS: LISINOPRIL 10 MG TABLET PO SCH (13:11)
[2021-05-30] MEDS: NICOTINE 21 MG/24 HOURS TOPICAL PATCH TD SCH (13:11)
[2021-05-30] MEDS: ENOXAPARIN NA (PORCINE) 40 MG/0.4 ML DISP.SYRIN SQ SCH ×2 (13:11→13:25)
[2021-05-30] MEDS: PANTOPRAZOLE 40 MG TABLET PO SCH (13:12)
[2021-05-30] MEDS: COLLAGENASE CLOSTRIDIUM HIST. 30 GRAMS TUBE TP SCH (13:13)
[2021-05-30] MEDS: LACTATED RINGERS SOLUTION 1,000 ML IV SCH (19:54)
[2021-05-30] MEDS: traMADol HCL 50 MG TABLET PO PRN (23:07)
[2021-05-31] MEDS ORDERED: methaDONE HCL 40 MG DISPERSABLE TABLET ONE (05:45)
[2021-05-31] MEDS ORDERED: methaDONE HCL 10 MG TABLET ONE (05:45)
[2021-05-31] MEDS: DOCUSATE SODIUM 100 MG CAPSULE (FP) PO SCH ×3 (06:23→22:55)
[2021-05-31] MEDS: VANCOMYCIN PREMIX 1.5 GM 1,500 MG/300 ML BAG IVPB SCH ×2 (07:24→18:06)
[2021-05-31] MEDS: POLYETHYLENE GLYCOL (HEALTHYLAX) 3350 17 GM PACKET PO SCH ×2 (10:29→22:57)
[2021-05-31] MEDS: ENOXAPARIN NA (PORCINE) 40 MG/0.4 ML DISP.SYRIN SQ SCH (10:29)
[2021-05-31] MEDS: NICOTINE 21 MG/24 HOURS TOPICAL PATCH TD SCH (10:29)
[2021-05-31] MEDS: LISINOPRIL 10 MG TABLET PO SCH (10:29)
[2021-05-31 11:04] LABS: BASO % 0.8 % (0-2.0); EOS % 1.3 % (0-4.5); HEMOGLOBIN 8.9 GM/dL (11.7-16.9); LYMPH % 25.6 % (8-40); MCHC 32.9 g/dl (32.0-35.9); MEAN PLT VOLUME 6.6 fl (7.5-11.1); MONO % 5.5 % (3.8-10.2); NEUT % 66.8 % (42.8-82.8); PLATELET COUNT 566 10^3/uL (134-434); RBC 3.42 M/mm3 (4.00-5.60); RDW 21.5 % (11.9-15.9); WHITE BLOOD COUNT 4.5 K/mm3 (4.0-10.0)
[2021-05-31 11:13] LABS: INR 1.21 (0.83-1.09); PROTHROMBIN TIME (PATIENT) 13.9 SEC (9.7-13.0)
[2021-05-31] MEDS: traMADol HCL 50 MG TABLET PO PRN ×2 (11:13→22:55)
[2021-05-31 11:28] LABS: CALCIUM 8.7 mg/dL (8.5-10.1)
[2021-05-31 11:29] LABS: ALBUMIN 2.4 g/dl (3.4-5.0)
[2021-05-31 11:32] LABS: CREATININE 0.6 mg/dL (0.55-1.3)
[2021-05-31 11:34] LABS: TOT PROT 6.5 g/dl (6.4-8.2)
[2021-05-31 11:37] LABS: BILIRUBIN,TOTAL 0.2 mg/dL (0.2-1)
[2021-05-31] MEDS: COLLAGENASE CLOSTRIDIUM HIST. 30 GRAMS TUBE TP SCH (15:36)
[2021-05-31] MEDS: ACETAMINOPHEN 325 MG TABLET (FP) PO PRN (18:43)
[2021-05-31] MEDS ORDERED: DOCUSATE SODIUM 100 MG CAPSULE (FP) PO ONE (23:05)
[2021-06-01] MEDS ORDERED: methaDONE HCL 10 MG TABLET ONE (05:07)
[2021-06-01] MEDS ORDERED: methaDONE HCL 40 MG DISPERSABLE TABLET ONE (05:08)
[2021-06-01] MEDS: DOCUSATE SODIUM 100 MG CAPSULE (FP) PO SCH ×3 (06:43→21:09)
[2021-06-01] MEDS: VANCOMYCIN PREMIX 1.5 GM 1,500 MG/300 ML BAG IVPB SCH ×2 (06:43→18:29)
[2021-06-01 08:32] LABS: CALCIUM 9.2 mg/dL (8.5-10.1)
[2021-06-01 08:33] LABS: ALBUMIN 2.7 g/dl (3.4-5.0); BLOOD UREA NITROGEN 8.9 mg/dL (7-18); MAGNESIUM 2.2 mg/dL (1.8-2.4)
[2021-06-01 08:36] LABS: CREATININE 0.6 mg/dL (0.55-1.3)
[2021-06-01 08:37] LABS: BILIRUBIN,TOTAL 0.4 mg/dL (0.2-1); TOT PROT 6.9 g/dl (6.4-8.2)
[2021-06-01] MEDS ORDERED: LACTULOSE 20 GM/30 ML UDC (FOR ORAL USE ONLY) PO ONE (09:30)
[2021-06-01] MEDS: NICOTINE 21 MG/24 HOURS TOPICAL PATCH TD SCH (10:24)
[2021-06-01] MEDS: LISINOPRIL 10 MG TABLET PO SCH (10:24)
[2021-06-01] MEDS: POLYETHYLENE GLYCOL (HEALTHYLAX) 3350 17 GM PACKET PO SCH ×2 (10:24→21:10)
[2021-06-01] MEDS: ENOXAPARIN NA (PORCINE) 40 MG/0.4 ML DISP.SYRIN SQ SCH (10:25)
[2021-06-01] MEDS: COLLAGENASE CLOSTRIDIUM HIST. 30 GRAMS TUBE TP SCH (10:25)
[2021-06-01 15:09] LABS: SARS-CoV-2 NAA Not Detected (Not Detected)
[2021-06-01] MEDS: traMADol HCL 50 MG TABLET PO PRN (21:09)
[2021-06-02] MEDS ORDERED: methaDONE HCL 40 MG DISPERSABLE TABLET ONE (05:48)
[2021-06-02] MEDS ORDERED: methaDONE HCL 10 MG TABLET ONE (05:48)
[2021-06-02] MEDS ORDERED: DALBAVANCIN HCL 1,500 MG in DEXTROSE 5%-WATER - 500 ML IVPB ONE (06:00)
[2021-06-02] MEDS: DOCUSATE SODIUM 100 MG CAPSULE (FP) PO SCH ×3 (06:22→21:23)
[2021-06-02] MEDS: VANCOMYCIN PREMIX 1.5 GM 1,500 MG/300 ML BAG IVPB SCH ×2 (06:22→18:19)
[2021-06-02 09:02] LABS: CALCIUM 9.3 mg/dL (8.5-10.1)
[2021-06-02 09:03] LABS: ALBUMIN 2.8 g/dl (3.4-5.0); BLOOD UREA NITROGEN 9.3 mg/dL (7-18); MAGNESIUM 2.2 mg/dL (1.8-2.4)
[2021-06-02 09:06] LABS: CREATININE 0.6 mg/dL (0.55-1.3)
[2021-06-02 09:08] LABS: BILIRUBIN,TOTAL 0.5 mg/dL (0.2-1); TOT PROT 7.2 g/dl (6.4-8.2)
[2021-06-02] MEDS: traMADol HCL 50 MG TABLET PO PRN ×2 (09:47→21:23)
[2021-06-02] MEDS: ENOXAPARIN NA (PORCINE) 40 MG/0.4 ML DISP.SYRIN SQ SCH (09:48)
[2021-06-02] MEDS: LISINOPRIL 10 MG TABLET PO SCH (09:49)
[2021-06-02] MEDS: NICOTINE 21 MG/24 HOURS TOPICAL PATCH TD SCH (09:49)
[2021-06-02] MEDS: POLYETHYLENE GLYCOL (HEALTHYLAX) 3350 17 GM PACKET PO SCH ×2 (09:49→21:23)
[2021-06-02] MEDS: COLLAGENASE CLOSTRIDIUM HIST. 30 GRAMS TUBE TP SCH (09:52)
[2021-06-03] MEDS ORDERED: methaDONE HCL 40 MG DISPERSABLE TABLET ONE (06:04)
[2021-06-03] MEDS ORDERED: methaDONE HCL 10 MG TABLET ONE (06:04)
[2021-06-03] MEDS: VANCOMYCIN PREMIX 1.5 GM 1,500 MG/300 ML BAG IVPB SCH ×2 (07:03→21:25)
[2021-06-03] MEDS: DOCUSATE SODIUM 100 MG CAPSULE (FP) PO SCH ×3 (07:04→21:12)
[2021-06-03] MEDS: LISINOPRIL 10 MG TABLET PO SCH (10:14)
[2021-06-03] MEDS: POLYETHYLENE GLYCOL (HEALTHYLAX) 3350 17 GM PACKET PO SCH ×2 (10:15→21:26)
[2021-06-03] MEDS: ENOXAPARIN NA (PORCINE) 40 MG/0.4 ML DISP.SYRIN SQ SCH (10:15)
[2021-06-03] MEDS: NICOTINE 21 MG/24 HOURS TOPICAL PATCH TD SCH (10:15)
[2021-06-03] MEDS: COLLAGENASE CLOSTRIDIUM HIST. 30 GRAMS TUBE TP SCH (10:15)
[2021-06-03] MEDS: ACETAMINOPHEN 325 MG TABLET (FP) PO PRN ×2 (13:08→21:14)
[2021-06-03 14:01] LABS: ALBUMIN 3.1 g/dl (3.4-5.0); MAGNESIUM 2.1 mg/dL (1.8-2.4)
[2021-06-03 14:04] LABS: CREATININE 0.7 mg/dL (0.55-1.3)
[2021-06-03 14:06] LABS: BILIRUBIN,TOTAL 0.2 mg/dL (0.2-1); TOT PROT 7.6 g/dl (6.4-8.2)
[2021-06-04] MEDS ORDERED: methaDONE HCL 10 MG TABLET ONE (05:20)
[2021-06-04] MEDS ORDERED: methaDONE HCL 40 MG DISPERSABLE TABLET ONE (05:20)
[2021-06-04] MEDS: DOCUSATE SODIUM 100 MG CAPSULE (FP) PO SCH ×3 (06:00→22:07)
[2021-06-04] MEDS: POLYETHYLENE GLYCOL (HEALTHYLAX) 3350 17 GM PACKET PO SCH ×2 (09:20→22:10)
[2021-06-04] MEDS: ENOXAPARIN NA (PORCINE) 40 MG/0.4 ML DISP.SYRIN SQ SCH (09:21)
[2021-06-04] MEDS: NICOTINE 21 MG/24 HOURS TOPICAL PATCH TD SCH (09:56)
[2021-06-04] MEDS: LISINOPRIL 10 MG TABLET PO SCH (09:56)
[2021-06-04] MEDS: VANCOMYCIN PREMIX 1.5 GM 1,500 MG/300 ML BAG IVPB SCH (09:57)
[2021-06-04] MEDS: traMADol HCL 50 MG TABLET PO PRN (16:21)
[2021-06-04] MEDS: COLLAGENASE CLOSTRIDIUM HIST. 30 GRAMS TUBE TP SCH (17:13)
[2021-06-04] MEDS: ACETAMINOPHEN 325 MG TABLET (FP) PO PRN (22:09)
[2021-06-05] MEDS: traMADol HCL 50 MG TABLET PO PRN ×2 (00:53→09:11)
[2021-06-05] MEDS ORDERED: methaDONE HCL 40 MG DISPERSABLE TABLET ONE (05:31)
[2021-06-05] MEDS ORDERED: methaDONE HCL 10 MG TABLET ONE (05:31)
[2021-06-05 05:40] VITALS: BP 124/60; PULSE 58; TEMP 97.8
[2021-06-05] MEDS: DOCUSATE SODIUM 100 MG CAPSULE (FP) PO SCH (05:43)
[2021-06-05] MEDS ORDERED: DALBAVANCIN HCL 1,500 MG in DEXTROSE 5%-WATER - 500 ML IVPB ONE ×2 (06:00→10:00)
[2021-06-05] MEDS: LISINOPRIL 10 MG TABLET PO SCH (09:12)
[2021-06-05] MEDS: ENOXAPARIN NA (PORCINE) 40 MG/0.4 ML DISP.SYRIN SQ SCH (09:12)
[2021-06-05] MEDS: NICOTINE 21 MG/24 HOURS TOPICAL PATCH TD SCH (09:12)
[2021-06-05] MEDS: COLLAGENASE CLOSTRIDIUM HIST. 30 GRAMS TUBE TP SCH (09:12)
[2021-06-05] MEDS: POLYETHYLENE GLYCOL (HEALTHYLAX) 3350 17 GM PACKET PO SCH (09:12)
== END 2021-06-05 11:58 | disposition home or self-care (01) | DRG 380 ==
LOC: JER 13:27 → JERBED 19:50 → J7W 05-23 02:11
PROVIDERS: ADMIT Internal Medicine; ATTEND Nurse Practitioner Acute Care
PROC: 0W980ZZ Drainage of Chest Wall, Open Approach (ICD-10-PCS; principal; 2021-05-25 12:00)
PROC: 0DJ08ZZ Inspection of Upper Intestinal Tract, Via Natural or Artificial Opening Endoscopic (ICD-10-PCS; 2021-05-30)
PROC: 0DBM8ZX Excision of Descending Colon, Via Natural or Artificial Opening Endoscopic, Diagnostic (ICD-10-PCS; 2021-05-30)
DX: L97.518 Non-pressure chronic ulcer of other part of right foot with other specified severity (principal); I10 Essential (primary) hypertension; F10.10 Alcohol abuse, uncomplicated; Z59.00 Homelessness unspecified; D50.9 Iron deficiency anemia, unspecified; F20.0 Paranoid schizophrenia; G62.9 Polyneuropathy, unspecified; F17.210 Nicotine dependence, cigarettes, uncomplicated; R79.89 Other specified abnormal findings of blood chemistry; L02.611 Cutaneous abscess of right foot; Z88.0 Allergy status to penicillin; L03.115 Cellulitis of right lower limb; J45.909 Unspecified asthma, uncomplicated; F14.10 Cocaine abuse, uncomplicated; L02.213 Cutaneous abscess of chest wall; N17.9 Acute kidney failure, unspecified; S22.32XA Fracture of one rib, left side, initial encounter for closed fracture; K63.5 Polyp of colon; F11.20 Opioid dependence, uncomplicated; K44.9 Diaphragmatic hernia without obstruction or gangrene; K57.30 Diverticulosis of large intestine without perforation or abscess without bleeding; K64.8 Other hemorrhoids; D18.09 Hemangioma of other sites; K83.8 Other specified diseases of biliary tract; Y08.89XA Assault by other specified means, initial encounter; Y93.89 Activity, other specified; Y92.89 Other specified places as the place of occurrence of the external cause; Y99.8 Other external cause status
CPT/HCPCS: 36415; 36430; 71045-TC-FY; 71260-TC; 73610-TC-RT-FY; 73630-TC-RT-FY; 73718-TC-RT; 74177-TC; 74178-TC; 74181-TC; 76700-TC; 80048; 80053; 80076; 80307; 82105; 82550; 82607; 82728; 82746; 82784; 82977; 83021; 83516; 83540; 83550; 83735; 84100; 84443; 84484; 85025; 85045; 85610; 85651; 85660; 85730; 86038; 86140; 86301; 86705; 86709; 86803; 86850; 86900; 86901; 86922; 87040; 87070; 87186; 87205; 87340; 87389; 87517; 88305-TC; 93005; 93010; 93971-TC; 94760; 97116-GP; 97162-GP; 99285-25; C9803-CS; G0480; J0875; J1756; P9058; Q9967; U0003; U0005

== ENCOUNTER 2021-10-26 12:32 | Inpatient (IN) | payer OTHER ==
[2021-10-26 13:30] VITALS: BMI 29.9
[2021-10-26] MEDS ORDERED: ACETAMINOPHEN 325 MG TABLET (FP) PO PRN ×2 (14:20)
[2021-10-26] MEDS ORDERED: NICOTINE 10 MG CARTRIDGE (INHALER) IH PRN (14:20)
[2021-10-26] MEDS ORDERED: MAGNESIUM CITRATE 300 ML BOTTLE PO PRN (14:20)
[2021-10-26] MEDS ORDERED: BENZOCAINE/MENTHOL (CHLORASEPTIC ) LOZENGE MM PRN (14:20)
[2021-10-26] MEDS ORDERED: BISMUTH SUBSALICYLATE 524 MG/30 ML PO PRN (14:20)
[2021-10-26] MEDS ORDERED: chlordiazePOXIDE HCL 25 MG CAPSULE PO PRN (14:20)
[2021-10-26] MEDS ORDERED: ONDANSETRON *ODT* 4 MG TABLET SL PRN (14:20)
[2021-10-26] MEDS ORDERED: DICYCLOMINE HCL 10 MG CAPSULE PO PRN (14:20)
[2021-10-26] MEDS ORDERED: LOPERAMIDE HCL 2 MG CAPSULE PO PRN (14:20)
[2021-10-26] MEDS ORDERED: MAG HYDROX/AL HYDROX/SIMETH 30 ML UNIT-DOSE CUP PO PRN (14:20)
[2021-10-26] MEDS ORDERED: NALOXONE HCL (KLOXXADO) 8 MG SPRAY NS PRN (14:20)
[2021-10-26] MEDS ORDERED: MAGNESIUM HYDROX 2400MG/30ML ORAL SUSPENSION 30 ML CUP PO PRN (14:20)
[2021-10-26] MEDS ORDERED: IBUPROFEN 400 MG TABLET (FP) PO ONE (15:41)
[2021-10-26] MEDS ORDERED: LORazepam 1 MG TABLET ONE (15:46)
[2021-10-26] MEDS: LORazepam 1 MG TABLET PO PRN (15:49)
[2021-10-26] MEDS: IBUPROFEN 400 MG TABLET (FP) PO PRN (15:49)
[2021-10-26] MEDS ORDERED: chlordiazePOXIDE HCL 25 MG CAPSULE PO SCH (17:00)
[2021-10-26] MEDS: LORazepam 2 MG TABLET PO SCH ×2 (17:47→22:09)
[2021-10-26] MEDS: hydrOXYzine PAMOATE 25 MG CAPSULE (FP) PO SCH ×2 (17:47→22:09)
[2021-10-26] MEDS: ALBUTEROL SO4 HFA INHALER IH PRN (17:55)
[2021-10-26] MEDS: AMMONIUM LACTATE 12% LOTION 225 GM BOTTLE TP PRN (17:55)
[2021-10-26] MEDS: MINERAL OIL/PETROLAT/WATER TOPICAL CREAM 113 GM JAR TP SCH (21:09)
[2021-10-26] MEDS: MELATONIN 5 MG TABLETS PO SCH (22:09)
[2021-10-26] MEDS: THIAMINE HCL 100 MG TABLET (FP) PO SCH (22:09)
[2021-10-26] MEDS: METHOCARBAMOL 500 MG TABLET PO PRN (22:09)
[2021-10-26] MEDS: DOCUSATE SODIUM 100 MG CAPSULE (FP) PO PRN (22:11)
[2021-10-27] MEDS: LORazepam 2 MG TABLET PO SCH ×4 (05:35→22:15)
[2021-10-27] MEDS: hydrOXYzine PAMOATE 25 MG CAPSULE (FP) PO SCH ×5 (05:36→22:15)
[2021-10-27] MEDS ORDERED: methaDONE HCL 10 MG TABLET PO SCH (08:45)
[2021-10-27] MEDS: NICOTINE 14 MG/24 HOURS TOPICAL PATCH TD SCH (10:10)
[2021-10-27] MEDS: METHOCARBAMOL 500 MG TABLET PO PRN ×3 (10:11→22:58)
[2021-10-27] MEDS: PRENATAL VITAMINS W/ FOLIC ACID TABLET (FP) PO SCH (10:11)
[2021-10-27] MEDS: MINERAL OIL/PETROLAT/WATER TOPICAL CREAM 113 GM JAR TP SCH (10:12)
[2021-10-27] MEDS: DOCUSATE SODIUM 100 MG CAPSULE (FP) PO PRN ×2 (10:33→22:14)
[2021-10-27 10:49] LABS: HEMATOCRIT 31.9 % (35.4-49); MCH 29.3 pg (25.7-33.7); MCHC 34.4 g/dl (32.0-35.9); MEAN CELL VOLUME 85.1 fl (80-96); MEAN PLT VOLUME 7.8 fl (7.5-11.1); PLATELET COUNT 188 10^3/uL (134-434); RBC 3.75 M/mm3 (4.00-5.60); RDW 16.5 % (11.9-15.9); WHITE BLOOD COUNT 4.4 K/mm3 (4.0-10.0)
[2021-10-27 10:53] LABS: CALCIUM 8.7 mg/dL (8.5-10.1)
[2021-10-27 10:54] LABS: ALBUMIN 3.3 g/dl (3.4-5.0)
[2021-10-27 10:57] LABS: CREATININE 0.8 mg/dL (0.55-1.3)
[2021-10-27 10:58] LABS: BILIRUBIN,TOTAL 0.2 mg/dL (0.2-1); TOT PROT 6.2 g/dl (6.4-8.2)
[2021-10-27 12:04] LABS: HIV INTERPRETATION NEGATIVE (NEGATIVE)
[2021-10-27] MEDS: ALBUTEROL SO4 HFA INHALER IH PRN ×3 (12:15→22:16)
[2021-10-27] MEDS: IBUPROFEN 600 MG TABLET (FP) PO PRN (13:18)
[2021-10-27] MEDS: MELATONIN 5 MG TABLETS PO SCH (22:16)
[2021-10-27] MEDS: THIAMINE HCL 100 MG TABLET (FP) PO SCH (22:16)
[2021-10-28] MEDS: IBUPROFEN 600 MG TABLET (FP) PO PRN ×2 (01:07→10:24)
[2021-10-28] MEDS ORDERED: chlordiazePOXIDE HCL 25 MG CAPSULE PO SCH (05:00)
[2021-10-28] MEDS: LORazepam 1 MG TABLET PO SCH ×4 (05:36→22:05)
[2021-10-28] MEDS: hydrOXYzine PAMOATE 25 MG CAPSULE (FP) PO SCH ×5 (05:38→22:05)
[2021-10-28] MEDS: PRENATAL VITAMINS W/ FOLIC ACID TABLET (FP) PO SCH (10:17)
[2021-10-28] MEDS: MINERAL OIL/PETROLAT/WATER TOPICAL CREAM 113 GM JAR TP SCH (10:19)
[2021-10-28] MEDS: NICOTINE 14 MG/24 HOURS TOPICAL PATCH TD SCH (10:19)
[2021-10-28] MEDS: ALBUTEROL SO4 HFA INHALER IH PRN ×2 (10:22→14:44)
[2021-10-28] MEDS: METHOCARBAMOL 500 MG TABLET PO PRN (17:04)
[2021-10-28] MEDS: DOCUSATE SODIUM 100 MG CAPSULE (FP) PO PRN (17:08)
[2021-10-28] MEDS: THIAMINE HCL 100 MG TABLET (FP) PO SCH (22:05)
[2021-10-28] MEDS: MELATONIN 5 MG TABLETS PO SCH (22:07)
[2021-10-28] MEDS: IBUPROFEN 400 MG TABLET (FP) PO PRN (22:08)
[2021-10-29] MEDS ORDERED: chlordiazePOXIDE HCL 10 MG CAPSULE PO PRN
[2021-10-29] MEDS ORDERED: chlordiazePOXIDE HCL 10 MG CAPSULE PO SCH (05:00)
[2021-10-29] MEDS: LORazepam 0.5 MG TABLET PO SCH ×4 (06:00→22:03)
[2021-10-29] MEDS: hydrOXYzine PAMOATE 25 MG CAPSULE (FP) PO SCH ×2 (06:00→10:17)
[2021-10-29] MEDS: NICOTINE 14 MG/24 HOURS TOPICAL PATCH TD SCH (10:14)
[2021-10-29] MEDS: MINERAL OIL/PETROLAT/WATER TOPICAL CREAM 113 GM JAR TP SCH (10:18)
[2021-10-29] MEDS: PRENATAL VITAMINS W/ FOLIC ACID TABLET (FP) PO SCH (10:19)
[2021-10-29] MEDS: ALBUTEROL SO4 HFA INHALER IH PRN ×3 (10:20→22:04)
[2021-10-29] MEDS: AMMONIUM LACTATE 12% LOTION 225 GM BOTTLE TP PRN (11:04)
[2021-10-29] MEDS ORDERED: hydrOXYzine PAMOATE 25 MG CAPSULE (FP) PO PRN (12:14)
[2021-10-29] MEDS: LORazepam 1 MG TABLET PO PRN (13:44)
[2021-10-29] MEDS: DOCUSATE SODIUM 100 MG CAPSULE (FP) PO PRN ×2 (13:48→22:04)
[2021-10-29] MEDS: LORazepam 0.5 MG TABLET PO PRN (19:16)
[2021-10-29] MEDS: THIAMINE HCL 100 MG TABLET (FP) PO SCH (22:04)
[2021-10-29] MEDS: MELATONIN 5 MG TABLETS PO SCH (22:04)
[2021-10-29] MEDS: IBUPROFEN 400 MG TABLET (FP) PO PRN (22:06)
[2021-10-30] MEDS: LORazepam 0.5 MG TABLET PO PRN (02:01)
[2021-10-30] MEDS ORDERED: chlordiazePOXIDE HCL 10 MG CAPSULE PO SCH (05:00)
[2021-10-30] MEDS: LORazepam 0.5 MG TABLET PO SCH (05:37)
[2021-10-30] MEDS: ALBUTEROL SO4 HFA INHALER IH PRN (05:42)
[2021-10-30] MEDS: DOCUSATE SODIUM 100 MG CAPSULE (FP) PO PRN (05:46)
[2021-10-30] MEDS: IBUPROFEN 400 MG TABLET (FP) PO PRN (05:46)
[2021-10-30 06:08] VITALS: RESP 18
[2021-10-30] MEDS: PRENATAL VITAMINS W/ FOLIC ACID TABLET (FP) PO SCH (10:17)
[2021-10-30] MEDS: AMMONIUM LACTATE 12% LOTION 225 GM BOTTLE TP PRN (10:18)
[2021-10-30] MEDS: NICOTINE 14 MG/24 HOURS TOPICAL PATCH TD SCH (10:18)
[2021-10-30] MEDS: MINERAL OIL/PETROLAT/WATER TOPICAL CREAM 113 GM JAR TP SCH (10:20)
[2021-10-30 12:51] VITALS: BP 145/81; PULSE 70; TEMP 96.9
[2021-10-31] MEDS ORDERED: chlordiazePOXIDE HCL 10 MG CAPSULE PO ONE (05:00)
== END 2021-10-30 13:01 | disposition home or self-care (01) | DRG 773 ==
LOC: YASAS 12:32 → Y3N 15:49
PROVIDERS: ADMIT Allergy & Immunology; ATTEND Surgery
PROC: HZ2ZZZZ Detoxification Services for Substance Abuse Treatment (ICD-10-PCS; principal; 2021-10-26)
DX: F10.230 Alcohol dependence with withdrawal, uncomplicated (principal); F11.20 Opioid dependence, uncomplicated; F17.210 Nicotine dependence, cigarettes, uncomplicated; F20.0 Paranoid schizophrenia; I10 Essential (primary) hypertension; J45.909 Unspecified asthma, uncomplicated; Z89.421 Acquired absence of other right toe(s); Z28.310 Unvaccinated for COVID-19; Z28.9 Immunization not carried out for unspecified reason; Z88.0 Allergy status to penicillin; Z88.8 Allergy status to other drugs, medicaments and biological substances
CPT/HCPCS: 36415; 80053; 83036; 85027; 86780; 87389; 93005; 93010; C9803-CS; U0003; U0005

== ENCOUNTER 2022-01-22 13:47 | Inpatient (IN) | payer OTHER ==
[2022-01-22 16:25] VITALS: BMI 28.8
[2022-01-22] MEDS ORDERED: BENZOCAINE/MENTHOL (CHLORASEPTIC ) LOZENGE MM PRN (18:50)
[2022-01-22] MEDS ORDERED: P-EPHED 60MG/TRIPROLIDI 2.5MG TABLET PO PRN (18:50)
[2022-01-22] MEDS ORDERED: MAG HYDROX/AL HYDROX/SIMETH 30 ML UNIT-DOSE CUP PO PRN (18:50)
[2022-01-22] MEDS ORDERED: POLYETHYLENE GLYCOL (HEALTHYLAX) 3350 17 GM PACKET PO PRN (18:50)
[2022-01-22] MEDS ORDERED: guaiFENesin 200 MG/10 ML 10 ML UNIT-DOSE CUPS PO PRN (18:50)
[2022-01-22] MEDS ORDERED: LOPERAMIDE HCL 2 MG CAPSULE PO PRN (18:50)
[2022-01-22] MEDS ORDERED: ACETAMINOPHEN 325 MG TABLET (FP) PO PRN (18:50)
[2022-01-22] MEDS ORDERED: MAGNESIUM HYDROX 2400MG/30ML ORAL SUSPENSION 30 ML CUP PO PRN (18:50)
[2022-01-22] MEDS ORDERED: NICOTINE 10 MG CARTRIDGE (INHALER) IH PRN (18:50)
[2022-01-22] MEDS: GABAPENTIN 400 MG CAPSULE PO SCH (23:50)
[2022-01-22] MEDS: MELATONIN 5 MG TABLETS PO SCH (23:50)
[2022-01-22] MEDS: THIAMINE HCL 100 MG TABLET (FP) PO SCH (23:51)
[2022-01-23] MEDS: GABAPENTIN 400 MG CAPSULE PO SCH ×3 (06:02→21:14)
[2022-01-23] MEDS: IBUPROFEN 400 MG TABLET (FP) PO PRN ×3 (06:03→21:14)
[2022-01-23] MEDS ORDERED: methaDONE HCL 10 MG TABLET PO SCH (08:30)
[2022-01-23] MEDS: PRENATAL VITAMINS W/ FOLIC ACID TABLET (FP) PO SCH (09:12)
[2022-01-23] MEDS: LISINOPRIL 10 MG TABLET PO SCH (09:12)
[2022-01-23] MEDS: NICOTINE 7 MG/24 HOURS TOPICAL PATCH TD SCH (09:13)
[2022-01-23 11:06] LABS: HEMATOCRIT 32.8 % (35.4-49); HEMOGLOBIN 10.5 GM/dL (11.7-16.9); MCH 26.8 pg (25.7-33.7); MEAN CELL VOLUME 83.8 fl (80-96); MEAN PLT VOLUME 8.5 fl (7.5-11.1); PLATELET COUNT 198 10^3/uL (134-434); RBC 3.92 M/mm3 (4.00-5.60); RDW 15.5 % (11.9-15.9)
[2022-01-23 11:51] LABS: PH,URINE 6.5 (5.0-8.0); URINE APPEARANCE CLEAR; URINE BILIRUBIN NEGATIVE (NEGATIVE); URINE COLOR YELLOW; URINE GLUCOSE (UA) NEGATIVE (NEGATIVE); URINE KETONE NEGATIVE (NEGATIVE); URINE LEUK ESTERASE NEGATIVE (NEGATIVE); URINE NITRITE NEGATIVE (NEGATIVE); URINE PROTEIN NEGATIVE (NEGATIVE)
[2022-01-23 12:07] LABS: ALBUMIN 3.1 g/dl (3.4-5.0); CALCIUM 8.7 mg/dL (8.5-10.1)
[2022-01-23 12:08] LABS: BLOOD UREA NITROGEN 13.9 mg/dL (7-18)
[2022-01-23 12:12] LABS: BILIRUBIN,TOTAL 0.6 mg/dL (0.2-1); TOT PROT 5.9 g/dl (6.4-8.2)
[2022-01-23 12:14] LABS: CREATININE 0.7 mg/dL (0.55-1.3)
[2022-01-23] MEDS: ALBUTEROL SO4 HFA INHALER IH PRN (19:55)
[2022-01-23] MEDS: MELATONIN 5 MG TABLETS PO SCH (21:14)
[2022-01-23] MEDS: THIAMINE HCL 100 MG TABLET (FP) PO SCH (21:14)
[2022-01-24] MEDS: GABAPENTIN 400 MG CAPSULE PO SCH ×3 (05:56→21:26)
[2022-01-24] MEDS: IBUPROFEN 400 MG TABLET (FP) PO PRN ×2 (05:57→21:27)
[2022-01-24] MEDS: PRENATAL VITAMINS W/ FOLIC ACID TABLET (FP) PO SCH (10:40)
[2022-01-24] MEDS: LISINOPRIL 10 MG TABLET PO SCH (10:40)
[2022-01-24] MEDS: NICOTINE 7 MG/24 HOURS TOPICAL PATCH TD SCH (10:40)
[2022-01-24] MEDS: ALBUTEROL SO4 HFA INHALER IH PRN (10:43)
[2022-01-24] MEDS: cloNIDine HCL 0.1 MG TABLET PO PRN ×2 (10:45→21:37)
[2022-01-24] MEDS: DOCUSATE SODIUM 100 MG CAPSULE (FP) PO PRN ×2 (11:53→21:27)
[2022-01-24] MEDS: MELATONIN 5 MG TABLETS PO SCH (21:25)
[2022-01-24] MEDS: THIAMINE HCL 100 MG TABLET (FP) PO SCH (21:25)
[2022-01-25] MEDS: IBUPROFEN 400 MG TABLET (FP) PO PRN ×2 (05:55→21:44)
[2022-01-25] MEDS: GABAPENTIN 400 MG CAPSULE PO SCH ×3 (05:55→21:33)
[2022-01-25] MEDS: PRENATAL VITAMINS W/ FOLIC ACID TABLET (FP) PO SCH (10:10)
[2022-01-25] MEDS: NICOTINE 7 MG/24 HOURS TOPICAL PATCH TD SCH (10:10)
[2022-01-25] MEDS: LISINOPRIL 10 MG TABLET PO SCH (10:10)
[2022-01-25] MEDS: DOCUSATE SODIUM 100 MG CAPSULE (FP) PO PRN ×2 (10:14→21:43)
[2022-01-25] MEDS: cloNIDine HCL 0.1 MG TABLET PO PRN ×2 (13:34→20:25)
[2022-01-25] MEDS: levETIRAcetam 500 MG TABLET (FP) PO SCH (21:33)
[2022-01-25] MEDS: MELATONIN 5 MG TABLETS PO SCH (21:34)
[2022-01-25] MEDS: THIAMINE HCL 100 MG TABLET (FP) PO SCH (21:34)
[2022-01-25] MEDS: ALBUTEROL SO4 HFA INHALER IH PRN (21:43)
[2022-01-26] MEDS: GABAPENTIN 400 MG CAPSULE PO SCH ×3 (05:53→21:53)
[2022-01-26] MEDS: IBUPROFEN 400 MG TABLET (FP) PO PRN ×2 (05:53→21:53)
[2022-01-26] MEDS: LISINOPRIL 10 MG TABLET PO SCH (09:45)
[2022-01-26] MEDS: NICOTINE 7 MG/24 HOURS TOPICAL PATCH TD SCH (09:45)
[2022-01-26] MEDS: PRENATAL VITAMINS W/ FOLIC ACID TABLET (FP) PO SCH (09:45)
[2022-01-26] MEDS: FOLIC ACID 1 MG TABLET (FP) PO SCH (09:45)
[2022-01-26] MEDS: levETIRAcetam 500 MG TABLET (FP) PO SCH (09:45)
[2022-01-26] MEDS: DOCUSATE SODIUM 100 MG CAPSULE (FP) PO PRN (13:17)
[2022-01-26] MEDS: MELATONIN 5 MG TABLETS PO SCH (21:50)
[2022-01-26] MEDS: THIAMINE HCL 100 MG TABLET (FP) PO SCH (21:53)
[2022-01-26] MEDS: cloNIDine HCL 0.1 MG TABLET PO PRN (22:05)
[2022-01-27] MEDS: GABAPENTIN 400 MG CAPSULE PO SCH ×3 (05:50→21:45)
[2022-01-27] MEDS: IBUPROFEN 400 MG TABLET (FP) PO PRN ×3 (05:51→21:47)
[2022-01-27] MEDS: PRENATAL VITAMINS W/ FOLIC ACID TABLET (FP) PO SCH (09:58)
[2022-01-27] MEDS: LISINOPRIL 10 MG TABLET PO SCH (09:58)
[2022-01-27] MEDS: FOLIC ACID 1 MG TABLET (FP) PO SCH (09:58)
[2022-01-27] MEDS: NICOTINE 7 MG/24 HOURS TOPICAL PATCH TD SCH (09:59)
[2022-01-27] MEDS: cloNIDine HCL 0.1 MG TABLET PO PRN (10:04)
[2022-01-27] MEDS: AMMONIUM LACTATE 12% LOTION 225 GM BOTTLE TP PRN (14:56)
[2022-01-27] MEDS: THIAMINE HCL 100 MG TABLET (FP) PO SCH (21:45)
[2022-01-27] MEDS: MELATONIN 5 MG TABLETS PO SCH (21:48)
[2022-01-28] MEDS: GABAPENTIN 400 MG CAPSULE PO SCH ×3 (06:08→21:30)
[2022-01-28] MEDS: IBUPROFEN 400 MG TABLET (FP) PO PRN ×3 (06:09→21:39)
[2022-01-28] MEDS: NICOTINE 7 MG/24 HOURS TOPICAL PATCH TD SCH (09:53)
[2022-01-28] MEDS: FOLIC ACID 1 MG TABLET (FP) PO SCH (09:53)
[2022-01-28] MEDS: PRENATAL VITAMINS W/ FOLIC ACID TABLET (FP) PO SCH (09:53)
[2022-01-28] MEDS: LISINOPRIL 10 MG TABLET PO SCH (09:55)
[2022-01-28] MEDS: AMMONIUM LACTATE 12% LOTION 225 GM BOTTLE TP PRN (14:22)
[2022-01-28] MEDS: MELATONIN 5 MG TABLETS PO SCH (21:30)
[2022-01-28] MEDS: THIAMINE HCL 100 MG TABLET (FP) PO SCH (21:31)
[2022-01-28] MEDS: DOCUSATE SODIUM 100 MG CAPSULE (FP) PO PRN (21:39)
[2022-01-29] MEDS: GABAPENTIN 400 MG CAPSULE PO SCH ×3 (05:58→21:36)
[2022-01-29] MEDS: IBUPROFEN 400 MG TABLET (FP) PO PRN ×3 (05:59→21:38)
[2022-01-29] MEDS: FOLIC ACID 1 MG TABLET (FP) PO SCH (09:54)
[2022-01-29] MEDS: LISINOPRIL 10 MG TABLET PO SCH (09:54)
[2022-01-29] MEDS: PRENATAL VITAMINS W/ FOLIC ACID TABLET (FP) PO SCH (09:54)
[2022-01-29] MEDS: cloNIDine HCL 0.1 MG TABLET PO PRN ×2 (09:55→21:38)
[2022-01-29] MEDS: NICOTINE 7 MG/24 HOURS TOPICAL PATCH TD SCH (09:55)
[2022-01-29] MEDS: THIAMINE HCL 100 MG TABLET (FP) PO SCH (21:36)
[2022-01-29] MEDS: MELATONIN 5 MG TABLETS PO SCH (21:36)
[2022-01-30] MEDS: GABAPENTIN 400 MG CAPSULE PO SCH ×3 (05:42→22:00)
[2022-01-30] MEDS: IBUPROFEN 400 MG TABLET (FP) PO PRN ×2 (05:44→22:05)
[2022-01-30] MEDS: FOLIC ACID 1 MG TABLET (FP) PO SCH (11:25)
[2022-01-30] MEDS: PRENATAL VITAMINS W/ FOLIC ACID TABLET (FP) PO SCH (11:25)
[2022-01-30] MEDS: LISINOPRIL 10 MG TABLET PO SCH (11:25)
[2022-01-30] MEDS: NICOTINE 7 MG/24 HOURS TOPICAL PATCH TD SCH (11:25)
[2022-01-30] MEDS: THIAMINE HCL 100 MG TABLET (FP) PO SCH (22:00)
[2022-01-30] MEDS: MELATONIN 5 MG TABLETS PO SCH (22:00)
[2022-01-31] MEDS: GABAPENTIN 400 MG CAPSULE PO SCH ×3 (06:47→22:15)
[2022-01-31] MEDS: IBUPROFEN 400 MG TABLET (FP) PO PRN ×2 (06:48→22:16)
[2022-01-31] MEDS: NICOTINE 7 MG/24 HOURS TOPICAL PATCH TD SCH (10:40)
[2022-01-31] MEDS: FOLIC ACID 1 MG TABLET (FP) PO SCH (10:40)
[2022-01-31] MEDS: PRENATAL VITAMINS W/ FOLIC ACID TABLET (FP) PO SCH (10:40)
[2022-01-31] MEDS: LISINOPRIL 10 MG TABLET PO SCH (10:40)
[2022-01-31] MEDS: THIAMINE HCL 100 MG TABLET (FP) PO SCH (22:15)
[2022-01-31] MEDS: MELATONIN 5 MG TABLETS PO SCH (22:15)
[2022-02-01] MEDS: IBUPROFEN 400 MG TABLET (FP) PO PRN ×3 (06:44→21:39)
[2022-02-01] MEDS: GABAPENTIN 400 MG CAPSULE PO SCH ×3 (06:45→21:38)
[2022-02-01] MEDS: LISINOPRIL 10 MG TABLET PO SCH (10:13)
[2022-02-01] MEDS: NICOTINE 7 MG/24 HOURS TOPICAL PATCH TD SCH (10:13)
[2022-02-01] MEDS: FOLIC ACID 1 MG TABLET (FP) PO SCH (10:13)
[2022-02-01] MEDS: PRENATAL VITAMINS W/ FOLIC ACID TABLET (FP) PO SCH (10:13)
[2022-02-01] MEDS: MELATONIN 5 MG TABLETS PO SCH (21:37)
[2022-02-01] MEDS: THIAMINE HCL 100 MG TABLET (FP) PO SCH (21:39)
[2022-02-02] MEDS: ALBUTEROL SO4 HFA INHALER IH PRN (02:35)
[2022-02-02] MEDS: GABAPENTIN 400 MG CAPSULE PO SCH ×3 (06:05→21:37)
[2022-02-02] MEDS: IBUPROFEN 400 MG TABLET (FP) PO PRN ×3 (06:05→21:38)
[2022-02-02] MEDS: FOLIC ACID 1 MG TABLET (FP) PO SCH (10:07)
[2022-02-02] MEDS: NICOTINE 7 MG/24 HOURS TOPICAL PATCH TD SCH (10:07)
[2022-02-02] MEDS: PRENATAL VITAMINS W/ FOLIC ACID TABLET (FP) PO SCH (10:08)
[2022-02-02] MEDS: LISINOPRIL 10 MG TABLET PO SCH (10:08)
[2022-02-02] MEDS: hydrOXYzine PAMOATE 25 MG CAPSULE (FP) PO PRN (10:09)
[2022-02-02] MEDS: THIAMINE HCL 100 MG TABLET (FP) PO SCH (21:38)
[2022-02-02] MEDS: MELATONIN 5 MG TABLETS PO SCH (21:38)
[2022-02-03] MEDS: GABAPENTIN 400 MG CAPSULE PO SCH ×3 (06:01→22:17)
[2022-02-03] MEDS: IBUPROFEN 400 MG TABLET (FP) PO PRN ×3 (06:01→22:24)
[2022-02-03] MEDS: NICOTINE 7 MG/24 HOURS TOPICAL PATCH TD SCH (10:32)
[2022-02-03] MEDS: PRENATAL VITAMINS W/ FOLIC ACID TABLET (FP) PO SCH (10:33)
[2022-02-03] MEDS: FOLIC ACID 1 MG TABLET (FP) PO SCH (10:33)
[2022-02-03] MEDS: LISINOPRIL 10 MG TABLET PO SCH (10:33)
[2022-02-03] MEDS: ALBUTEROL SO4 HFA INHALER IH PRN (10:46)
[2022-02-03] MEDS: THIAMINE HCL 100 MG TABLET (FP) PO SCH (22:17)
[2022-02-03] MEDS: MELATONIN 5 MG TABLETS PO SCH (22:17)
[2022-02-03] MEDS: hydrOXYzine PAMOATE 25 MG CAPSULE (FP) PO PRN (22:18)
[2022-02-04] MEDS: GABAPENTIN 400 MG CAPSULE PO SCH ×3 (06:15→22:00)
[2022-02-04] MEDS: IBUPROFEN 400 MG TABLET (FP) PO PRN ×2 (06:15→22:00)
[2022-02-04] MEDS: LISINOPRIL 10 MG TABLET PO SCH (10:11)
[2022-02-04] MEDS: NICOTINE 7 MG/24 HOURS TOPICAL PATCH TD SCH (10:11)
[2022-02-04] MEDS: FOLIC ACID 1 MG TABLET (FP) PO SCH (10:12)
[2022-02-04] MEDS: PRENATAL VITAMINS W/ FOLIC ACID TABLET (FP) PO SCH (10:12)
[2022-02-04] MEDS: AMMONIUM LACTATE 12% LOTION 225 GM BOTTLE TP PRN (13:25)
[2022-02-04] MEDS: MELATONIN 5 MG TABLETS PO SCH (22:00)
[2022-02-04] MEDS: THIAMINE HCL 100 MG TABLET (FP) PO SCH (22:00)
[2022-02-04] MEDS: hydrOXYzine PAMOATE 25 MG CAPSULE (FP) PO PRN (22:00)
[2022-02-04] MEDS: DOCUSATE SODIUM 100 MG CAPSULE (FP) PO PRN (22:06)
[2022-02-04] MEDS: ALBUTEROL SO4 HFA INHALER IH PRN (22:55)
[2022-02-05] MEDS: GABAPENTIN 400 MG CAPSULE PO SCH ×3 (06:16→21:41)
[2022-02-05] MEDS: IBUPROFEN 400 MG TABLET (FP) PO PRN ×2 (06:16→21:42)
[2022-02-05] MEDS: LISINOPRIL 10 MG TABLET PO SCH (10:25)
[2022-02-05] MEDS: NICOTINE 7 MG/24 HOURS TOPICAL PATCH TD SCH (10:25)
[2022-02-05] MEDS: FOLIC ACID 1 MG TABLET (FP) PO SCH (10:25)
[2022-02-05] MEDS: PRENATAL VITAMINS W/ FOLIC ACID TABLET (FP) PO SCH (10:25)
[2022-02-05] MEDS: cloNIDine HCL 0.1 MG TABLET PO PRN (10:50)
[2022-02-05] MEDS: MELATONIN 5 MG TABLETS PO SCH (21:42)
[2022-02-05] MEDS: THIAMINE HCL 100 MG TABLET (FP) PO SCH (21:42)
[2022-02-05] MEDS: DOCUSATE SODIUM 100 MG CAPSULE (FP) PO PRN (21:50)
[2022-02-05] MEDS: ALBUTEROL SO4 HFA INHALER IH PRN (21:51)
[2022-02-06] MEDS: GABAPENTIN 400 MG CAPSULE PO SCH ×3 (06:17→21:31)
[2022-02-06] MEDS: IBUPROFEN 400 MG TABLET (FP) PO PRN ×3 (06:18→21:31)
[2022-02-06] MEDS: FOLIC ACID 1 MG TABLET (FP) PO SCH (09:57)
[2022-02-06] MEDS: LISINOPRIL 10 MG TABLET PO SCH (09:57)
[2022-02-06] MEDS: PRENATAL VITAMINS W/ FOLIC ACID TABLET (FP) PO SCH (09:57)
[2022-02-06] MEDS: NICOTINE 7 MG/24 HOURS TOPICAL PATCH TD SCH (09:57)
[2022-02-06] MEDS: MELATONIN 5 MG TABLETS PO SCH (21:31)
[2022-02-06] MEDS: DOCUSATE SODIUM 100 MG CAPSULE (FP) PO PRN (21:31)
[2022-02-06] MEDS: THIAMINE HCL 100 MG TABLET (FP) PO SCH (21:31)
[2022-02-07] MEDS: GABAPENTIN 400 MG CAPSULE PO SCH ×3 (06:22→21:31)
[2022-02-07] MEDS: IBUPROFEN 400 MG TABLET (FP) PO PRN ×3 (06:22→21:32)
[2022-02-07] MEDS: LISINOPRIL 10 MG TABLET PO SCH (10:11)
[2022-02-07] MEDS: PRENATAL VITAMINS W/ FOLIC ACID TABLET (FP) PO SCH (10:11)
[2022-02-07] MEDS: FOLIC ACID 1 MG TABLET (FP) PO SCH (10:11)
[2022-02-07] MEDS: NICOTINE 7 MG/24 HOURS TOPICAL PATCH TD SCH (10:11)
[2022-02-07] MEDS: DOCUSATE SODIUM 100 MG CAPSULE (FP) PO PRN ×2 (13:17→21:31)
[2022-02-07] MEDS: MELATONIN 5 MG TABLETS PO SCH (21:30)
[2022-02-07] MEDS: THIAMINE HCL 100 MG TABLET (FP) PO SCH (21:31)
[2022-02-08] MEDS: IBUPROFEN 400 MG TABLET (FP) PO PRN (06:18)
[2022-02-08] MEDS: GABAPENTIN 400 MG CAPSULE PO SCH ×3 (06:19→21:16)
[2022-02-08] MEDS: NICOTINE 7 MG/24 HOURS TOPICAL PATCH TD SCH (09:54)
[2022-02-08] MEDS: FERROUS SO4 325 MG TABLET (FP) PO SCH (09:54)
[2022-02-08] MEDS: PRENATAL VITAMINS W/ FOLIC ACID TABLET (FP) PO SCH (09:54)
[2022-02-08] MEDS: LISINOPRIL 10 MG TABLET PO SCH (09:55)
[2022-02-08] MEDS: FOLIC ACID 1 MG TABLET (FP) PO SCH (09:55)
[2022-02-08] MEDS: AMMONIUM LACTATE 12% LOTION 225 GM BOTTLE TP PRN (09:57)
[2022-02-08] MEDS: DOCUSATE SODIUM 100 MG CAPSULE (FP) PO PRN ×2 (13:46→21:16)
[2022-02-08] MEDS ORDERED: hydrOXYzine PAMOATE 25 MG CAPSULE (FP) PO PRN (16:10)
[2022-02-08] MEDS: MELATONIN 5 MG TABLETS PO SCH (21:16)
[2022-02-08] MEDS: THIAMINE HCL 100 MG TABLET (FP) PO SCH (21:16)
[2022-02-08] MEDS: ALBUTEROL SO4 HFA INHALER IH PRN (21:17)
[2022-02-09] MEDS: GABAPENTIN 400 MG CAPSULE PO SCH ×3 (06:14→21:05)
[2022-02-09] MEDS: IBUPROFEN 400 MG TABLET (FP) PO PRN ×3 (06:16→21:06)
[2022-02-09] MEDS: FERROUS SO4 325 MG TABLET (FP) PO SCH (07:27)
[2022-02-09] MEDS: NICOTINE 7 MG/24 HOURS TOPICAL PATCH TD SCH (09:46)
[2022-02-09] MEDS: LISINOPRIL 10 MG TABLET PO SCH (09:46)
[2022-02-09] MEDS: PRENATAL VITAMINS W/ FOLIC ACID TABLET (FP) PO SCH (09:46)
[2022-02-09] MEDS: FOLIC ACID 1 MG TABLET (FP) PO SCH (09:46)
[2022-02-09] MEDS: DOCUSATE SODIUM 100 MG CAPSULE (FP) PO PRN ×2 (14:28→21:05)
[2022-02-09] MEDS: THIAMINE HCL 100 MG TABLET (FP) PO SCH (21:05)
[2022-02-09] MEDS: MELATONIN 5 MG TABLETS PO SCH (21:05)
[2022-02-09] MEDS: ALBUTEROL SO4 HFA INHALER IH PRN (21:07)
[2022-02-10] MEDS: GABAPENTIN 400 MG CAPSULE PO SCH ×3 (06:10→21:05)
[2022-02-10] MEDS: IBUPROFEN 400 MG TABLET (FP) PO PRN ×2 (06:10→21:06)
[2022-02-10] MEDS: FERROUS SO4 325 MG TABLET (FP) PO SCH (07:08)
[2022-02-10] MEDS: NICOTINE 7 MG/24 HOURS TOPICAL PATCH TD SCH (10:12)
[2022-02-10] MEDS: PRENATAL VITAMINS W/ FOLIC ACID TABLET (FP) PO SCH (10:12)
[2022-02-10] MEDS: LISINOPRIL 10 MG TABLET PO SCH (10:12)
[2022-02-10] MEDS: FOLIC ACID 1 MG TABLET (FP) PO SCH (10:12)
[2022-02-10] MEDS: DOCUSATE SODIUM 100 MG CAPSULE (FP) PO PRN ×2 (10:14→21:06)
[2022-02-10] MEDS: AMMONIUM LACTATE 12% LOTION 225 GM BOTTLE TP PRN (13:25)
[2022-02-10] MEDS: THIAMINE HCL 100 MG TABLET (FP) PO SCH (21:05)
[2022-02-10] MEDS: ALBUTEROL SO4 HFA INHALER IH PRN (21:05)
[2022-02-10] MEDS: MELATONIN 5 MG TABLETS PO SCH (21:05)
[2022-02-11] MEDS: GABAPENTIN 400 MG CAPSULE PO SCH ×3 (06:20→21:30)
[2022-02-11] MEDS: FERROUS SO4 325 MG TABLET (FP) PO SCH (07:16)
[2022-02-11] MEDS: FOLIC ACID 1 MG TABLET (FP) PO SCH (09:44)
[2022-02-11] MEDS: LISINOPRIL 10 MG TABLET PO SCH (09:44)
[2022-02-11] MEDS: NICOTINE 7 MG/24 HOURS TOPICAL PATCH TD SCH (09:44)
[2022-02-11] MEDS: PRENATAL VITAMINS W/ FOLIC ACID TABLET (FP) PO SCH (09:44)
[2022-02-11] MEDS: DOCUSATE SODIUM 100 MG CAPSULE (FP) PO PRN ×2 (09:47→21:32)
[2022-02-11] MEDS: AMMONIUM LACTATE 12% LOTION 225 GM BOTTLE TP PRN (09:47)
[2022-02-11] MEDS: IBUPROFEN 400 MG TABLET (FP) PO PRN ×2 (13:31→21:31)
[2022-02-11] MEDS: MELATONIN 5 MG TABLETS PO SCH (21:32)
[2022-02-11] MEDS: THIAMINE HCL 100 MG TABLET (FP) PO SCH (21:32)
[2022-02-12] MEDS: GABAPENTIN 400 MG CAPSULE PO SCH ×3 (05:55→21:29)
[2022-02-12] MEDS: FERROUS SO4 325 MG TABLET (FP) PO SCH (07:07)
[2022-02-12] MEDS: LISINOPRIL 10 MG TABLET PO SCH (09:38)
[2022-02-12] MEDS: FOLIC ACID 1 MG TABLET (FP) PO SCH (09:38)
[2022-02-12] MEDS: NICOTINE 7 MG/24 HOURS TOPICAL PATCH TD SCH (09:38)
[2022-02-12] MEDS: PRENATAL VITAMINS W/ FOLIC ACID TABLET (FP) PO SCH (09:38)
[2022-02-12] MEDS: DOCUSATE SODIUM 100 MG CAPSULE (FP) PO PRN ×2 (09:39→21:30)
[2022-02-12] MEDS: IBUPROFEN 400 MG TABLET (FP) PO PRN ×2 (14:51→21:30)
[2022-02-12] MEDS: THIAMINE HCL 100 MG TABLET (FP) PO SCH (21:30)
[2022-02-12] MEDS: MELATONIN 5 MG TABLETS PO SCH (21:30)
[2022-02-13] MEDS: GABAPENTIN 400 MG CAPSULE PO SCH ×3 (05:45→21:09)
[2022-02-13] MEDS: IBUPROFEN 400 MG TABLET (FP) PO PRN ×3 (05:49→21:20)
[2022-02-13] MEDS: FERROUS SO4 325 MG TABLET (FP) PO SCH (07:22)
[2022-02-13] MEDS: FOLIC ACID 1 MG TABLET (FP) PO SCH (09:47)
[2022-02-13] MEDS: LISINOPRIL 10 MG TABLET PO SCH (09:47)
[2022-02-13] MEDS: NICOTINE 7 MG/24 HOURS TOPICAL PATCH TD SCH (09:51)
[2022-02-13] MEDS: PRENATAL VITAMINS W/ FOLIC ACID TABLET (FP) PO SCH (12:10)
[2022-02-13] MEDS: DOCUSATE SODIUM 100 MG CAPSULE (FP) PO PRN ×2 (14:02→21:09)
[2022-02-13] MEDS: MELATONIN 5 MG TABLETS PO SCH (21:09)
[2022-02-13] MEDS: THIAMINE HCL 100 MG TABLET (FP) PO SCH (21:09)
[2022-02-14] MEDS: GABAPENTIN 400 MG CAPSULE PO SCH ×3 (05:57→21:24)
[2022-02-14] MEDS: IBUPROFEN 400 MG TABLET (FP) PO PRN ×3 (05:59→21:25)
[2022-02-14] MEDS: FERROUS SO4 325 MG TABLET (FP) PO SCH (07:23)
[2022-02-14] MEDS: FOLIC ACID 1 MG TABLET (FP) PO SCH (09:40)
[2022-02-14] MEDS: PRENATAL VITAMINS W/ FOLIC ACID TABLET (FP) PO SCH (09:40)
[2022-02-14] MEDS: NICOTINE 7 MG/24 HOURS TOPICAL PATCH TD SCH (09:40)
[2022-02-14] MEDS: LISINOPRIL 10 MG TABLET PO SCH (09:40)
[2022-02-14] MEDS: DOCUSATE SODIUM 100 MG CAPSULE (FP) PO PRN ×2 (09:41→21:24)
[2022-02-14] MEDS: MELATONIN 5 MG TABLETS PO SCH (21:24)
[2022-02-14] MEDS: THIAMINE HCL 100 MG TABLET (FP) PO SCH (21:24)
[2022-02-15] MEDS: GABAPENTIN 400 MG CAPSULE PO SCH ×3 (05:53→21:32)
[2022-02-15] MEDS: IBUPROFEN 400 MG TABLET (FP) PO PRN ×3 (05:54→21:33)
[2022-02-15] MEDS: FERROUS SO4 325 MG TABLET (FP) PO SCH (07:02)
[2022-02-15] MEDS: PRENATAL VITAMINS W/ FOLIC ACID TABLET (FP) PO SCH (10:13)
[2022-02-15] MEDS: FOLIC ACID 1 MG TABLET (FP) PO SCH (10:13)
[2022-02-15] MEDS: LISINOPRIL 10 MG TABLET PO SCH (10:13)
[2022-02-15] MEDS: NICOTINE 7 MG/24 HOURS TOPICAL PATCH TD SCH (10:13)
[2022-02-15] MEDS: DOCUSATE SODIUM 100 MG CAPSULE (FP) PO PRN ×2 (10:15→21:32)
[2022-02-15] MEDS: MELATONIN 5 MG TABLETS PO SCH (21:32)
[2022-02-15] MEDS: THIAMINE HCL 100 MG TABLET (FP) PO SCH (21:32)
[2022-02-16] MEDS: GABAPENTIN 400 MG CAPSULE PO SCH ×3 (06:16→21:36)
[2022-02-16] MEDS: IBUPROFEN 400 MG TABLET (FP) PO PRN ×3 (06:18→21:37)
[2022-02-16] MEDS: FERROUS SO4 325 MG TABLET (FP) PO SCH (07:11)
[2022-02-16] MEDS: DOCUSATE SODIUM 100 MG CAPSULE (FP) PO PRN ×2 (10:19→21:36)
[2022-02-16] MEDS: FOLIC ACID 1 MG TABLET (FP) PO SCH (10:19)
[2022-02-16] MEDS: LISINOPRIL 10 MG TABLET PO SCH (10:19)
[2022-02-16] MEDS: NICOTINE 7 MG/24 HOURS TOPICAL PATCH TD SCH (10:19)
[2022-02-16] MEDS: PRENATAL VITAMINS W/ FOLIC ACID TABLET (FP) PO SCH (10:20)
[2022-02-16] MEDS: MELATONIN 5 MG TABLETS PO SCH (21:36)
[2022-02-16] MEDS: THIAMINE HCL 100 MG TABLET (FP) PO SCH (21:36)
[2022-02-17] MEDS: GABAPENTIN 400 MG CAPSULE PO SCH ×3 (06:21→21:41)
[2022-02-17] MEDS: IBUPROFEN 400 MG TABLET (FP) PO PRN ×3 (06:22→21:42)
[2022-02-17] MEDS: FERROUS SO4 325 MG TABLET (FP) PO SCH (07:06)
[2022-02-17] MEDS: NICOTINE 7 MG/24 HOURS TOPICAL PATCH TD SCH (09:55)
[2022-02-17] MEDS: PRENATAL VITAMINS W/ FOLIC ACID TABLET (FP) PO SCH (09:55)
[2022-02-17] MEDS: FOLIC ACID 1 MG TABLET (FP) PO SCH (09:56)
[2022-02-17] MEDS: LISINOPRIL 10 MG TABLET PO SCH (09:56)
[2022-02-17] MEDS: AMMONIUM LACTATE 12% LOTION 225 GM BOTTLE TP PRN (13:37)
[2022-02-17] MEDS: DOCUSATE SODIUM 100 MG CAPSULE (FP) PO PRN (16:32)
[2022-02-17] MEDS: MELATONIN 5 MG TABLETS PO SCH (21:41)
[2022-02-17] MEDS: THIAMINE HCL 100 MG TABLET (FP) PO SCH (21:41)
[2022-02-18] MEDS: GABAPENTIN 400 MG CAPSULE PO SCH ×3 (06:24→21:37)
[2022-02-18] MEDS: IBUPROFEN 400 MG TABLET (FP) PO PRN ×2 (06:25→21:37)
[2022-02-18] MEDS: FERROUS SO4 325 MG TABLET (FP) PO SCH (07:08)
[2022-02-18] MEDS: PRENATAL VITAMINS W/ FOLIC ACID TABLET (FP) PO SCH (10:08)
[2022-02-18] MEDS: NICOTINE 7 MG/24 HOURS TOPICAL PATCH TD SCH (10:09)
[2022-02-18] MEDS: FOLIC ACID 1 MG TABLET (FP) PO SCH (10:09)
[2022-02-18] MEDS: LISINOPRIL 10 MG TABLET PO SCH (10:09)
[2022-02-18] MEDS: DOCUSATE SODIUM 100 MG CAPSULE (FP) PO PRN ×2 (10:12→21:37)
[2022-02-18] MEDS: THIAMINE HCL 100 MG TABLET (FP) PO SCH (21:37)
[2022-02-18] MEDS: MELATONIN 5 MG TABLETS PO SCH (21:37)
[2022-02-19] MEDS: IBUPROFEN 400 MG TABLET (FP) PO PRN (05:48)
[2022-02-19] MEDS: GABAPENTIN 400 MG CAPSULE PO SCH (05:48)
[2022-02-19] MEDS: FERROUS SO4 325 MG TABLET (FP) PO SCH (07:00)
[2022-02-19] MEDS: PRENATAL VITAMINS W/ FOLIC ACID TABLET (FP) PO SCH (09:28)
[2022-02-19] MEDS: FOLIC ACID 1 MG TABLET (FP) PO SCH (09:28)
[2022-02-19] MEDS: LISINOPRIL 10 MG TABLET PO SCH (09:28)
[2022-02-19] MEDS: NICOTINE 7 MG/24 HOURS TOPICAL PATCH TD SCH (09:29)
[2022-02-19 10:20] VITALS: BP 140/59; PULSE 84; RESP 18; TEMP 96.8
== END 2022-02-19 10:20 | disposition home or self-care (01) | DRG 772 ==
LOC: YASAS 13:47 → Y3W 22:12
PROVIDERS: ADMIT Allergy & Immunology; ATTEND Psychiatry & Neurology Pain Medicine
PROC: HZ42ZZZ Group Counseling for Substance Abuse Treatment, Cognitive-Behavioral (ICD-10-PCS; principal; 2022-01-22)
DX: F10.20 Alcohol dependence, uncomplicated (principal); F14.20 Cocaine dependence, uncomplicated; F17.210 Nicotine dependence, cigarettes, uncomplicated; F19.24 Other psychoactive substance dependence with psychoactive substance-induced mood disorder; F20.0 Paranoid schizophrenia; U07.1 COVID-19; G62.1 Alcoholic polyneuropathy; I10 Essential (primary) hypertension; J45.909 Unspecified asthma, uncomplicated; D50.9 Iron deficiency anemia, unspecified; M54.50 Low back pain, unspecified; Z62.810 Personal history of physical and sexual abuse in childhood; Z89.421 Acquired absence of other right toe(s); Z88.8 Allergy status to other drugs, medicaments and biological substances; Z88.0 Allergy status to penicillin; Z56.0 Unemployment, unspecified; Z59.02 Unsheltered homelessness
CPT/HCPCS: 36415; 80053; 81003; 85027; 86780; C9803-CS; U0003; U0005

== ENCOUNTER 2023-03-10 14:53 | Inpatient (IN) | payer OTHER ==
[2023-03-10 17:09] VITALS: BMI 29.5
[2023-03-10] MEDS ORDERED: hydrOXYzine PAMOATE 25 MG CAPSULE (FP) PO PRN (18:34)
[2023-03-10] MEDS ORDERED: ONDANSETRON *ODT* 4 MG TABLET SL PRN (18:34)
[2023-03-10] MEDS ORDERED: MAGNESIUM HYDROX 2400MG/30ML ORAL SUSPENSION 30 ML CUP PO PRN (18:34)
[2023-03-10] MEDS ORDERED: BISMUTH SUBSALICYLATE 524 MG/30 ML PO PRN (18:34)
[2023-03-10] MEDS ORDERED: MAG HYDROX/AL HYDROX/SIMETH 30 ML UNIT-DOSE CUP PO PRN (18:34)
[2023-03-10] MEDS ORDERED: BENZONATATE 200 MG CAPSULE PO PRN (18:34)
[2023-03-10] MEDS ORDERED: guaiFENesin 600 MG TABLET.ER (FP) PO PRN (18:34)
[2023-03-10] MEDS ORDERED: IBUPROFEN 400 MG TABLET (FP) PO PRN (18:34)
[2023-03-10] MEDS ORDERED: NALOXONE HCL (KLOXXADO) 8 MG SPRAY NS PRN (18:34)
[2023-03-10] MEDS ORDERED: BENZOCAINE/MENTHOL (CHLORASEPTIC ) LOZENGE MM PRN (18:34)
[2023-03-10] MEDS ORDERED: POLYETHYLENE GLYCOL (HEALTHYLAX) 3350 17 GM PACKET PO PRN (18:34)
[2023-03-10] MEDS ORDERED: LOPERAMIDE HCL 2 MG CAPSULE PO PRN (18:34)
[2023-03-10] MEDS ORDERED: DICYCLOMINE HCL 10 MG CAPSULE PO PRN (18:34)
[2023-03-10] MEDS ORDERED: NALOXONE HCL 0.4 MG/ML VIAL IM PRN (18:34)
[2023-03-10] MEDS: THIAMINE HCL 100 MG TABLET (FP) PO SCH (22:06)
[2023-03-10] MEDS: MELATONIN 5 MG TABLETS PO SCH (22:06)
[2023-03-10] MEDS: SULFAMETHOXAZOLE/TRIMETHOPRIM 800MG/160MG D.S. TABLET PO SCH (22:06)
[2023-03-11] MEDS ORDERED: methaDONE HCL 10 MG TABLET PO SCH (08:30)
[2023-03-11] MEDS ORDERED: LORazepam 1 MG TABLET PO PRN (09:16)
[2023-03-11] MEDS: LISINOPRIL 10 MG TABLET PO SCH (10:08)
[2023-03-11] MEDS: PRENATAL VITAMINS W/ FOLIC ACID TABLET (FP) PO SCH (10:08)
[2023-03-11] MEDS: SULFAMETHOXAZOLE/TRIMETHOPRIM 800MG/160MG D.S. TABLET PO SCH ×2 (10:08→22:23)
[2023-03-11] MEDS: ASPIRIN 81 MG CHEWABLE TABLETS PO SCH (10:08)
[2023-03-11] MEDS: LORazepam 2 MG TABLET PO SCH ×3 (10:09→22:23)
[2023-03-11 10:16] LABS: HEMATOCRIT 28.3 % (35.4-49); HEMOGLOBIN 9.1 GM/dL (11.7-16.9); MCHC 32.1 g/dl (32.0-35.9); MEAN CELL VOLUME 87.1 fl (80-96); MEAN PLT VOLUME 7.6 fl (7.5-11.1); PLATELET COUNT 207 10^3/uL (134-434); RBC 3.24 M/mm3 (4.00-5.60); RDW 15.4 % (11.9-15.9); WHITE BLOOD COUNT 4.1 K/mm3 (4.0-10.0)
[2023-03-11 10:21] LABS: CHLORIDE 106 mmol/L (98-107); POTASSIUM 4.1 mmol/L (3.5-5.1); SODIUM 142 mmol/L (136-145)
[2023-03-11 10:33] LABS: ALBUMIN 2.8 g/dl (3.4-5.0); ANION GAP 5 mmol/L (4-13); BLOOD UREA NITROGEN 12.4 mg/dL (7-18); CALCIUM 8.6 mg/dL (8.5-10.1); CO2 30 mmol/L (21-32); GLUCOSE,RANDOM 123 mg/dL (74-106)
[2023-03-11 10:35] LABS: CREATININE 0.6 mg/dL (0.55-1.3); SGOT/AST 11 U/L (15-37); SGPT/ALT 20 U/L (13-61)
[2023-03-11 10:37] LABS: BILIRUBIN,TOTAL 0.1 mg/dL (0.2-1); TOT PROT 5.7 g/dl (6.4-8.2)
[2023-03-11 10:38] LABS: ALK PHOS 88 U/L (45-117)
[2023-03-11] MEDS: ALBUTEROL SO4 HFA INHALER IH PRN (17:18)
[2023-03-11] MEDS: ACETAMINOPHEN 325 MG TABLET (FP) PO PRN (17:19)
[2023-03-11] MEDS: MELATONIN 5 MG TABLETS PO SCH (22:23)
[2023-03-11] MEDS: THIAMINE HCL 100 MG TABLET (FP) PO SCH (22:23)
[2023-03-11] MEDS: DOCUSATE SODIUM 100 MG CAPSULE (FP) PO PRN (22:23)
[2023-03-12] MEDS: IBUPROFEN 600 MG TABLET (FP) PO PRN ×2 (03:35→15:57)
[2023-03-12] MEDS: LORazepam 2 MG TABLET PO SCH ×4 (05:40→22:10)
[2023-03-12] MEDS: SULFAMETHOXAZOLE/TRIMETHOPRIM 800MG/160MG D.S. TABLET PO SCH ×2 (10:05→22:10)
[2023-03-12] MEDS: PRENATAL VITAMINS W/ FOLIC ACID TABLET (FP) PO SCH (10:05)
[2023-03-12] MEDS: ASPIRIN 81 MG CHEWABLE TABLETS PO SCH (10:05)
[2023-03-12] MEDS: LISINOPRIL 10 MG TABLET PO SCH (10:06)
[2023-03-12] MEDS: ACETAMINOPHEN 325 MG TABLET (FP) PO PRN (10:08)
[2023-03-12] MEDS: METHYL SALICYLATE/MENTHOL OINT 30 GM TUBE TP SCH ×2 (11:34→22:09)
[2023-03-12] MEDS: DOCUSATE SODIUM 100 MG CAPSULE (FP) PO PRN (15:57)
[2023-03-12] MEDS: THIAMINE HCL 100 MG TABLET (FP) PO SCH (22:10)
[2023-03-12] MEDS: MELATONIN 5 MG TABLETS PO SCH (22:10)
[2023-03-13] MEDS: LORazepam 1 MG TABLET PO SCH ×4 (05:25→22:41)
[2023-03-13] MEDS: IBUPROFEN 600 MG TABLET (FP) PO PRN ×2 (05:28→22:40)
[2023-03-13] MEDS: METHOCARBAMOL 500 MG TABLET PO PRN ×2 (08:46→22:40)
[2023-03-13] MEDS: ASPIRIN 81 MG CHEWABLE TABLETS PO SCH (10:07)
[2023-03-13] MEDS: LISINOPRIL 10 MG TABLET PO SCH (10:07)
[2023-03-13] MEDS: SULFAMETHOXAZOLE/TRIMETHOPRIM 800MG/160MG D.S. TABLET PO SCH ×2 (10:07→22:40)
[2023-03-13] MEDS: BACITRACIN 0.9 GM PACKET TP SCH (10:08)
[2023-03-13] MEDS: PRENATAL VITAMINS W/ FOLIC ACID TABLET (FP) PO SCH (10:08)
[2023-03-13] MEDS: METHYL SALICYLATE/MENTHOL OINT 30 GM TUBE TP SCH ×2 (10:08→22:43)
[2023-03-13] MEDS: DOCUSATE SODIUM 100 MG CAPSULE (FP) PO PRN (13:05)
[2023-03-13] MEDS: MELATONIN 5 MG TABLETS PO SCH (22:39)
[2023-03-13] MEDS: THIAMINE HCL 100 MG TABLET (FP) PO SCH (22:40)
[2023-03-14] MEDS ORDERED: LORazepam 0.5 MG TABLET PO PRN
[2023-03-14] MEDS: LORazepam 0.5 MG TABLET PO SCH ×4 (05:47→22:16)
[2023-03-14] MEDS: ASPIRIN 81 MG CHEWABLE TABLETS PO SCH (10:08)
[2023-03-14] MEDS: LISINOPRIL 10 MG TABLET PO SCH (10:09)
[2023-03-14] MEDS: BACITRACIN 0.9 GM PACKET TP SCH (10:09)
[2023-03-14] MEDS: SULFAMETHOXAZOLE/TRIMETHOPRIM 800MG/160MG D.S. TABLET PO SCH ×2 (10:10→22:15)
[2023-03-14] MEDS: PRENATAL VITAMINS W/ FOLIC ACID TABLET (FP) PO SCH (10:10)
[2023-03-14] MEDS: IBUPROFEN 600 MG TABLET (FP) PO PRN (10:12)
[2023-03-14] MEDS: METHYL SALICYLATE/MENTHOL OINT 30 GM TUBE TP SCH ×2 (10:37→22:17)
[2023-03-14] MEDS: MELATONIN 5 MG TABLETS PO SCH (22:15)
[2023-03-14] MEDS: THIAMINE HCL 100 MG TABLET (FP) PO SCH (22:15)
[2023-03-14] MEDS: METHOCARBAMOL 500 MG TABLET PO PRN (22:15)
[2023-03-15] MEDS: IBUPROFEN 600 MG TABLET (FP) PO PRN ×2 (03:23→13:39)
[2023-03-15] MEDS ORDERED: LORazepam 0.5 MG TABLET PO ONE (05:00)
[2023-03-15 09:08] VITALS: RESP 19
[2023-03-15] MEDS: METHYL SALICYLATE/MENTHOL OINT 30 GM TUBE TP SCH (10:05)
[2023-03-15] MEDS: PRENATAL VITAMINS W/ FOLIC ACID TABLET (FP) PO SCH (10:07)
[2023-03-15] MEDS: SULFAMETHOXAZOLE/TRIMETHOPRIM 800MG/160MG D.S. TABLET PO SCH (10:07)
[2023-03-15] MEDS: BACITRACIN 0.9 GM PACKET TP SCH (10:07)
[2023-03-15] MEDS: ASPIRIN 81 MG CHEWABLE TABLETS PO SCH (10:07)
[2023-03-15] MEDS: LISINOPRIL 10 MG TABLET PO SCH (10:07)
[2023-03-15 12:54] VITALS: BP 142/81; PULSE 77; TEMP 97.7
[2023-03-15] MEDS: METHOCARBAMOL 500 MG TABLET PO PRN (13:40)
[2023-03-15] MEDS: ALBUTEROL SO4 HFA INHALER IH PRN (14:16)
== END 2023-03-15 16:33 | DRG 773 ==
LOC: YASAS 14:53 → Y3N 18:28
PROVIDERS: ADMIT Allergy & Immunology; ATTEND Psychiatry & Neurology Pain Medicine
PROC: HZ2ZZZZ Detoxification Services for Substance Abuse Treatment (ICD-10-PCS; principal; 2023-03-10)
DX: F10.230 Alcohol dependence with withdrawal, uncomplicated (principal); F13.230 Sedative, hypnotic or anxiolytic dependence with withdrawal, uncomplicated; F11.20 Opioid dependence, uncomplicated; F14.20 Cocaine dependence, uncomplicated; F17.210 Nicotine dependence, cigarettes, uncomplicated; F25.0 Schizoaffective disorder, bipolar type; D64.9 Anemia, unspecified; R45.851 Suicidal ideations; L03.115 Cellulitis of right lower limb; L97.519 Non-pressure chronic ulcer of other part of right foot with unspecified severity; Z28.310 Unvaccinated for COVID-19; Z28.9 Immunization not carried out for unspecified reason; Z88.0 Allergy status to penicillin; Z88.8 Allergy status to other drugs, medicaments and biological substances
CPT/HCPCS: 36415; 80053; 80307; 85027; 86780; 87635; Q0162

== ENCOUNTER 2024-10-24 12:45 | Inpatient (IN) | payer OTHER ==
[2024-10-24 15:17] VITALS: BMI 36.1
[2024-10-24] MEDS ORDERED: NICOTINE POLACRILEX 2 MG LOZENGE BC PRN (15:25)
[2024-10-24] MEDS ORDERED: MAG HYDROX/AL HYDROX/SIMETH 30 ML UNIT-DOSE CUP PO PRN (15:25)
[2024-10-24] MEDS ORDERED: guaiFENesin 600 MG TABLET.ER (FP) PO PRN (15:25)
[2024-10-24] MEDS ORDERED: POLYETHYLENE GLYCOL (HEALTHYLAX) 3350 17 GM PACKET PO PRN (15:25)
[2024-10-24] MEDS ORDERED: BENZOCAINE/MENTHOL (CHLORASEPTIC ) LOZENGE MM PRN (15:25)
[2024-10-24] MEDS ORDERED: LOPERAMIDE HCL 2 MG CAPSULE PO PRN (15:25)
[2024-10-24] MEDS ORDERED: BISMUTH SUBSALICYLATE 524 MG/30 ML PO PRN (15:25)
[2024-10-24] MEDS ORDERED: DICYCLOMINE HCL 10 MG CAPSULE PO PRN (15:25)
[2024-10-24] MEDS ORDERED: NALOXONE (NARCAN) HCL 4 MG/0.1 ML SPRAY NS PRN (15:25)
[2024-10-24] MEDS ORDERED: BENZONATATE 200 MG CAPSULE PO PRN (15:25)
[2024-10-24] MEDS ORDERED: IBUPROFEN 400 MG TABLET (FP) PO PRN (15:25)
[2024-10-24] MEDS ORDERED: MAGNESIUM HYDROX 2400MG/30ML ORAL SUSPENSION 30 ML CUP PO PRN (15:25)
[2024-10-24] MEDS ORDERED: P-EPHED 60MG/TRIPROLIDI 2.5MG TABLET PO PRN (15:25)
[2024-10-24] MEDS ORDERED: NICOTINE POLACRILEX 2 MG GUM BUC PRN (15:25)
[2024-10-24] MEDS ORDERED: ONDANSETRON *ODT* 4 MG TABLET SL PRN (15:25)
[2024-10-24] MEDS ORDERED: ALBUTEROL SO4 HFA INHALER IH ONE (20:17)
[2024-10-24] MEDS: THIAMINE 100 MG TABLET PO SCH (23:01)
[2024-10-24] MEDS: METHOCARBAMOL 500 MG TABLET PO PRN (23:01)
[2024-10-24] MEDS: MELATONIN 5 MG TABLETS PO SCH (23:01)
[2024-10-24] MEDS: levETIRAcetam 500 MG TABLET (FP) PO SCH (23:53)
[2024-10-25] MEDS: PRENATAL VITAMINS W/ FOLIC ACID TABLET (FP) PO SCH (10:38)
[2024-10-26] MEDS: NICOTINE 21 MG/24 HOURS TOPICAL PATCH TD SCH (13:21)
[2024-10-26] MEDS: IBUPROFEN 600 MG TABLET (FP) PO PRN (17:11)
[2024-10-26] MEDS: ALBUTEROL SO4 HFA INHALER IH PRN (22:42)
[2024-10-27] MEDS: GABAPENTIN 400 MG CAPSULE PO SCH (13:56)
[2024-10-27] MEDS: ACETAMINOPHEN 325 MG TABLET (FP) PO PRN (19:00)
[2024-10-28] MEDS: LISINOPRIL 20 MG TABLET PO SCH (23:21)
[2024-10-29 10:28] LABS: MCHC 31.4 g/dl (32.3-36.5); MEAN CELL VOLUME 87.3 fl (79.0-92.2); MEAN PLT VOLUME 9.4 fl (9.4-12.4); RDW 14.1 % (12.2-16.4)
[2024-10-29 10:54] LABS: GLUCOSE,RANDOM 103.0 mg/dL (74-106); TOT PROT 8.3 g/dl (6.4-8.2)
[2024-10-29 10:55] LABS: CO2 28.0 mmol/L (21-32)
[2024-10-29 10:57] LABS: ALK PHOS 93.0 U/L (40-150)
[2024-10-29 10:59] LABS: SGOT/AST 26.0 U/L (5-34); SGPT/ALT 21.0 U/L (0-55)
[2024-10-29 11:00] LABS: CREATININE 0.63 mg/dL (0.55-1.3)
[2024-10-29 12:59] VITALS: BP 129/73; PULSE 67; RESP 15; TEMP 97.7
== END 2024-10-29 15:09 | disposition other institution (70) | DRG 773 ==
LOC: YASAS 12:45 → Y6N 18:15
PROVIDERS: ADMIT Neuromusculoskeletal Medicine & OMM; ATTEND Counselor Addiction (Substance Use Disorder)
PROC: HZ2ZZZZ Detoxification Services for Substance Abuse Treatment (ICD-10-PCS; principal; 2024-10-24)
DX: F10.230 Alcohol dependence with withdrawal, uncomplicated (principal); F11.20 Opioid dependence, uncomplicated; F17.210 Nicotine dependence, cigarettes, uncomplicated; F19.280 Other psychoactive substance dependence with psychoactive substance-induced anxiety disorder; D50.9 Iron deficiency anemia, unspecified; G40.909 Epilepsy, unspecified, not intractable, without status epilepticus; I10 Essential (primary) hypertension; J44.9 Chronic obstructive pulmonary disease, unspecified; M14.679 Charcot's joint, unspecified ankle and foot; R26.89 Other abnormalities of gait and mobility; Z99.89 Dependence on other enabling machines and devices; Z88.0 Allergy status to penicillin; Z88.8 Allergy status to other drugs, medicaments and biological substances
CPT/HCPCS: 36415; 80053; 80305; 80307; 85027; 86780; 87811